=== PATIENT | male | born 1955 | race Caucasian/White ===

== ENCOUNTER 2024-05-20 08:05 | Outpatient (OUT) | payer MEDICARE, OTHER, SELFPAY ==
[2024-05-20 08:26] LABS: Basophils Absolute Auto 0.1 10^3/uL (0.0-0.1); Basophils Percent Auto 1.6 % (0.2-2.0); Eosinophils Absolute Auto 0.4 10^3/uL (0.0-0.7); Hematocrit 46.5 % (42.0-54.0); Hemoglobin 15.9 g/dL (14.0-18.0); Immature Granulocytes Abs Auto 0.03 10^3/uL (0.00-0.03); Immature Granulocytes Pct Auto 0.3 % (0.0-0.5); Lymphocytes Absolute Auto 3.1 10^3/uL (1.2-3.8); Lymphocytes Percent Auto 34.9 % (20.5-60.0); Mean Corpuscular HGB Conc 34.2 g/dL (29.9-35.2); Mean Corpuscular Hemoglobin 30.2 pg (25.9-34.0); Mean Corpuscular Volume 88.2 fL (80.0-94.0); Mean Platelet Volume 10.9 fL (9.5-13.5); Monocytes Absolute Auto 0.8 10^3/uL (0.3-0.8); Neutrophils Absolute Auto 4.3 10^3/uL (1.4-6.5); Neutrophils Percent Auto 49.2 % (43.0-75.0); Platelet Count 232 10^3/uL (150-450); Red Blood Count 5.27 10^6/uL (4.70-6.10); Red Cell Distribution Width 12.4 % (11.0-15.0); White Blood Count 8.7 10^3/uL (4.0-11.0)
[2024-05-20 08:27] LABS: Bilirubin Urine NEGATIVE (NEGATIVE); Blood Urine NEGATIVE (NEGATIVE); Clarity Urine CLEAR (CLEAR); Color Urine LT. YELLOW (YELLOW); Glucose Urine UA 250 mg/dL (NEGATIVE); Ketones Urine NEGATIVE (NEGATIVE); Leukocyte Esterase Urine NEGATIVE (NEGATIVE); Nitrite Urine NEGATIVE (NEGATIVE); Protein Urine NEGATIVE (NEG/TRACE); Urobilinogen Urine 0.2 EU/dL (0.2-1.0)
[2024-05-20 08:30] LABS: Urine Microscopic Indicated NO
[2024-05-20 09:42] LABS: Alanine Aminotransferase 76 U/L (16-63); Albumin Globulin Ratio 0.7; Albumin Level 3.5 g/dL (3.4-5.0); Alkaline Phosphatase 139 U/L (46-116); Anion Gap 13.7; Aspartate Amino Transferase 41 U/L (15-37); BUN Creatinine Ratio 11.9; Bilirubin Total 0.7 mg/dL (0.2-1.0); Calcium 9.2 mg/dL (8.5-10.1); Carbon Dioxide 27.3 mmol/L (21.0-32.0); Chloride 99 mmol/L (98-107); Estimated GFR (African America >60 (>=60 mL/min/1.73m^2); Estimated GFR (Non-African Ame >60 (>=60 mL/min/1.73m^2); Globulin 5.1 g/dL; Glucose 244 mg/dL (74-106); Sodium 136 mmol/L (136-145); Total Protein 8.6 g/dL (6.4-8.2)
[2024-05-20 10:16] LABS: Prostate Specific Antigen Scrn 0.37 ng/mL (<=4.00)
[2024-05-21 08:50] LABS: Estimated Average Glucose 214 mg/dL; Glycohemoglobin A1C 9.1 % (4.5-6.2)
== END 2024-05-20 08:06 | disposition home or self-care (01) ==
LOC: LAB 08:06
PROVIDERS: PCP Nurse Practitioner; Visit Provider Nurse Practitioner
DX: M54.50 Low back pain, unspecified (principal); E66.812 Obesity, class 2; E66.09 Other obesity due to excess calories; Z68.36 Body mass index [BMI] 36.0-36.9, adult; Z12.5 Encounter for screening for malignant neoplasm of prostate; R73.9 Hyperglycemia, unspecified
CPT/HCPCS: 36415; 80053; 81003; 83036; 85025; G0103

== ENCOUNTER 2025-03-16 08:41 | Outpatient (OUT) | payer MEDICARE, OTHER, SELFPAY ==
--- OUTSIDE RECORDS SUMMARY | 2025-03-16 08:46 | XMS_ITS | CCD ---
Author Organization [facility] Care Team Providers Care Physical Therapy Aides Teacher Name Role Phone JOI, BARBARA E Unavailable Unavailable MAHER, GREGORIO B Unavailable Unavailable JOI, BARBARA E Unavailable Unavailable JOI, BARBARA E Unavailable Unavailable MAHER, GREGORIO B Unavailable Unavailable JOI, BARBARA E Unavailable Unavailable MAHER, GREGORIO B Unavailable Unavailable KRISTIN DEGROOT Unavailable Unavailable JOI, BARBARA E Unavailable Unavailable JOI, BARBARA E Unavailable Unavailable MAHER, GREGORIO B Unavailable Unavailable Brenden Ramirez MD Primary Care Provider Rissa BOND ANALYST, Lyssa Unavailable Rissa BOND ANALYST, Lyssa Unavailable Rissa PROJECT MANAGEMENT MANAGER-AMBULATORY NURSELyssa Primary Care Provider STEFANI MARCUS Attending Unavailable LYSSA KWOK Referring Unavailable AICHBRIGETTE, LYSSA J Primary Care Unavailable AICHBRIGETTE, LYSSA J Referring Unavailable AICVINCE, LYSSA J Primary Care Unavailable VIKAS FLORES Admitting Unavailable VIKAS FLORES Attending Unavailable VIKAS FLORES Referring Unavailable AICHBRIGETTE LYSSA J Primary Care Unavailable AICHHOLZ, LYSSA Attending Unavailable AICHHOLZ, LYSSA Attending Unavailable AICHBRIGETTE, LYSSA Attending Unavailable Aichholz BOND ANALYST-CLyssa Primary Care Provider Rissa BOND ANALYST-C, Lyssa [place] Attending Provider Allergies Allergy ClassificationReported Allergen(s)Allergy TypeDate of OnsetReaction(s) Facility (10 sources)PenicillinsDrug Xtdezmnfhyz75-29-4624QwuqjakQBLV [facility] Work Phone: (5 sources)Penicillin; Translations: [PENICILLIN]Drug Celflil37-13-2405AebTcjcan [facility] System Medications Current Medications MedicationDrug Class(es)DatesSig (Normalized)Sig (Original)aspirin 81 mg oral tablet (6 sources)Platelet Aggregation Inhibitor, Nonsteroidal Anti-inflammatory Drug Start: 21-76-4166lmri 1 tablet by mouth once dailyAspirin 81 mg tablet Active 81 MG PO Daily December 19, 2024 12:00am Complies with drug therapytake 1 tablet by mouth once dailyaspirin 81 MG EC tablet Take 81 mg by mouth Daily Activeaspirin 81 mg chewable tablet Chew 1 tablet (81 mg total) and swallow in the morning. ActivemetFORMIN hydrochloride 500 mg oral tablet (12 sources)BiguanideStart: 67-61-9672cthv 1 tablet by mouth once dailyMetformin 500 mg tablet Active 500 MG PO Daily December 19, 2024 12:00am Complies with drug therapyStart: 05-22-2024 End: 92-93-5491lers 1 tablet by mouth at mealtimemetFORMIN (Glucophage) 500 MG tablet Indications: Type 2 diabetes mellitus without complication, without long- term current use of insulin Take 1 tablet (500 mg) by mouth in the morning. Take with meals. 90 tablet 09/10/2024 12/09/2024 Activesod sulf-pot chloride-mag sulf 1.479-0.188- 0.225 gram tablet (2 sources)Start: 26-00-2662nos sulf-pot chloride-mag sulf 1.479-0.188- 0.225 gram tablet Indications: Encounter for screening colonoscopy Please see instructional sheet given by physicians office. 24 tablet 06/04/2024 Active sulfamethoxazole 800 mg / trimethoprim 160 mg oral tablet (5 sources)Dihydrofolate Reductase Inhibitor Antibacterial, Sulfonamide AntimicrobialStart: 05-19-2024 End: 81-97-1316kznk 1 tablet by mouth oncesulfamethoxazole-trimethoprim (Bactrim DS) 800-160 MG per tablet Indications: Subacute maxillary sinusitis Take 1 tablet by mouth every 12 (twelve) hours for 7 days 14 tablet 05/19/2024 05/26/2024 Active Problems Active Problems Problem ClassificationProblemDateDocumented DateEpisodic/ChronicDiabetes mellitus without complication (11 sources)Type 2 diabetes mellitus without complication; Translations: [Type 2 diabetes mellitus without complications]Onset: hronic Miscellaneous mental health disorders (11 sources)Primary insomnia; Translations: [Primary insomnia]Onset: 05-19-2024 84-72-7214GtujkfgMyopzyaewrscdr (20 sources)Unilateral primary osteoarthritis, right knee; Translations: [Osteoarthritis of right knee joint]Onset: 156437-07-3116IgtzkmuRogks and unspecified benign neoplasm (1 source)Polyp of colon; Translations: [Polyp of colon]Onset: 06-19-2024 EpisodicOther and unspecified benign neoplasm (5 sources)Polyp of colon; Translations: [Polyp of colon]Onset: 06-19-2024 42-40-8586YbkgcpgnSgwsu circulatory disease (4 sources)Elevated blood pressure; Translations: [Elevated blood-pressure reading, without diagnosis of hypertension]Onset: 294873-06-5113Zdxlzhds Other connective tissue disease (1 source)Presence of right artificial knee joint; Translations: [Presence of right artificial knee joint]Onset: 23-75-1280WorlliqTqtmx liver diseases (2 sources)Alkaline phosphatase raised; Translations: [Abnormal levels of other serum enzymes]95-78-0494QotdgaqmIoman nutritional; endocrine; and metabolic disorders (15 sources)Obesity caused by energy imbalance; Translations: [Class 2 obesity due to excess calories without serious comorbidity with body mass index (BMI) of 36.0 to 36.9 in adult]Onset: 503566-14-5051CzdtsoxVudwinndxvtv (1 source)l tkr / l tkr()Onset: 86-45-9509Dfrnhzfxozcz (1 source)PRE SURG / PRE SURG()Onset: 17-55-8361Hasyocvglcfe (3 sources)Patient encounter status; Translations: [Colon Cancer Screening] Onset: 594227-59-3276Nrfxsrflxnbd (1 source)screeningOnset: 06-19-2024 Past or Other Problems Problem ClassificationProblemDateDocumented DateEpisodic/ChronicDiabetes mellitus without complication (7 sources)Hyperglycemia; Translations: [Hyperglycemia, unspecified]Onset: 05-21-2024 Resolved: 091071-67-5798PpfgnwnwNujf disorders (4 sources)Mood disordersOnset: Other non-traumatic joint disorders (11 sources)Hip pain; Translations: [Pain in right hip]Onset: 05-19-2024 50-70-8042CwwsefjtEzqge screening for suspected conditions (not mental disorders or infectious disease) (20 sources)Patient encounter status; Translations: [Encounter for screening for malignant neoplasm of colon]Onset: 147586-65-8561UypyjjkwLfkup upper respiratory infections (11 sources)Acute maxillary sinusitis; Translations: [Acute maxillary sinusitis, unspecified]Onset: 05-19-2024 Resolved: 844344-89-4305PhuaqhmzYgqssffuqjg; intervertebral disc disorders; other back problems (11 sources)Acute low back pain; Translations: [Acute right-sided low back pain without sciatica]Onset: 537936-52-4124HzcryqnyYmbfqgo and strains (20 sources)Strain of knee; Translations: [Strain of unspecified muscle(s) and tendon(s) at lower leg level, left leg, initial encounter]Onset: 05-19-2024 27-62-4136WorvodgmIqueikubtfdy (1 source)l tkr; Translations: [l tkr]Onset: 07-79-7965Qbzeenifwskl (1 source)PRE SURG; Translations: [PRE SURG]Onset: 69-65-9736Ongvi infection (10 sources)Disease caused by 2019-nCoV; Translations: [COVID-19]Onset: 04-24-2023 Resolved: 548226-65-9233Onzrctui Results Test NameValueInterpretationReference KpjigOgmzyixrVxX0g (Bld) [Mass fraction]on 48-40-1707Wqbsesuoappxcy and review of laboratory resultsAbnormalPemiscot Memorial Health Systems HealthcareLaboratory - Hematology and Cell countson 80-43-8757ZkI7d (Bld) [Mass fraction]6.5 %[facility] HealthcareSurgical Pathologyon 91-55-4477Ecbjnvpt PathologyNormalProMedica San Gabriel Valley Medical CenterComment on above:Result Comment: [facility] [address] [place] [address] Surgical Pathology Consultation Patient Name:SARKIS GUZMAN JR.:1955 (Age: 69)Gender:MTaken:06/19/2024Reported:06/26/2024Physician(s):Vikas Flores D.O. ([phone])Copy To: Rec. #:[id number]: # [id number] Final Pathologic Diagnosis 1. Ascending colon polyp, biopsy: Tubular adenoma. 2. Splenic flexure polyp, biopsy: Tubular adenoma. Report Electronically Signed Out ssi/06/26/2024Sulow Hahn M.D. Interpretation [place] [address], License number: [id number]. Clinical History Screening. 1. Cold snared a polyp. 2. Cold snared. Gross Description 1. Received in formalin labeled THOMAS, ascending colon polyp , are 3 armenta feathery polypoid fragments 0.1 cm - 0.3 cm. The specimen is filtered and submitted entirely in a single cassette. (1,ns,[id number], m1) SW 2. Received in formalin labeled THOMAS, splenic flexure polyp , is 1 armenta polypoid fragment 0.3 cm ingreatest dimension. The specimen is filtered and submitted entirely in a single cassette. (1,ns,I14-62552-1, m1) sxw/06/20/2024GR Specimen(s) Received 1: Ascending colon polyp 2: Splenic flexure polyp Fee Codes(s): 1; 03154 2; 42836ZTG CBC WITH AUTO DIFFon 85-12-4320ARVGGKPFR ABSOLUTE AUTO0.1NOMS HealthcareBasophils/100 WBC (Bld)1.6 %0.2 - 2.0 %[facility] HealthcareEosinophils/100 WBC (Bld)5 %0.9 - 7.0 %[facility] HealthcareErythrocyte distribution width (RBC) [Ratio]12.4 %11.0 - 15.0 %[facility] HealthcareHematocrit (Bld) [Volume fraction]46.5 %42.0 - 54.0 %[facility] HospitalHemoglobin (Bld) [Mass/Vol]15.9 g/dL14.0 - 18.0 g/dLHermann Area District HospitalIMMATURE GRANULOCYTES ABS AUTO0.03N[facility]S [facility] Orthopedic CenterImmature granulocytes/100 WBC (Bld)0.3 %0.0 - 0.5 %[facility] HospitalLYMPHOCYTES ABSOLUTE AUTO3.1N[facility] HealthcareLymphocytes/100 WBC (Bld)34.9 %20.5 - 60.0 %[facility] CenterH (RBC) [Entitic mass]30.2 pg25.9 - 34.0 pgSSM DePaul Health CenterHC (RBC) [Mass/Vol]34.2 g/dL29.9 - 35.2 g/dLSSM DePaul Health CenterV (RBC) [Entitic vol]88.2 fL 80.0 - 94.0 fLHermann Area District HospitalMONOCYTES ABSOLUTE AUTO0.8NOSSM Health Care Monocytes/100 WBC (Bld)9 %1.7 - 12.0 %[facility] HospitalNEUTROPHILS ABSOLUTE AUTO 4.3N[facility] HealthcareNeutrophils/100 WBC (Bld)49.2 %43.0 - 75.0 %[facility] Platelet mean volume (Bld) [Entitic vol]10.9 fL9.5 - 13.5 fLNOSSM Health CareTBH EO #0.4N[facility]opedic CenterTB [id number] [facility] CenterTB RBC5.27N[facility]opedic CenterTB WBC 8.7N[facility]S [facility]opedic CenterCLINISYNCNOMS HealthcareDischarge Summaryon 00-03-2257SNA IP Note OR TranscriptionNormalBarberton Citizens HospitalHgb/Hcton 03-21-4157Mirylsgemf (HCT)39.1 %Low40.7-50.3[facility]'S HospitalComment on above:Performed By: #### HH ####[address] [place] [address] Hemoglobin mass conc (Bld)13.2 g/fTAaghvo03.0-17.0Bar[facility] Citizens HospitalComment on above:Performed By: #### HH ####[address] [place] [address] Plan of Careon 28-86-9318IFB IP Note OR TranscriptionNormTriHealth [facility] Hospital HospitalProgress Noteon 63-64-2708QGA IP Note OR TranscriptionNormalMercy Health St. [facility] HospitalPLUNKET[facility] IP Note OR TranscriptionNormalMercy Health St. [facility] HospitalHI IP Note OR TranscriptionNormalMerMadison Health HospitalHI IP Note OR TranscriptionNormalMercy Health St. [facility] HospitalHI IP Note OR Appian Bpm Developer NormalMerMadison Health HospitalHI IP Note OR TranscriptionNormalMercy Health St. [facility] HospitalPLUNKETT [facility] IP Note OR TranscriptionNormalMercy Health St. [facility] HospitalXR KNEE RIGHT (1- 2 VIEWS)on 73-07-1235BozmhbjIEYQTD: Right knee, 2 views.INDICATION: Right total knee.FINDINGS: AP and lateral views of the right knee show a total knee prosthesis to be present. The prosthesis appears to be well seated within the bony structures, in good position and alignment. There is no fracture or dislocation. There is prominent spurring from the patella. There is a drain within the soft tissues.Final report electronically signed by Dalton Echevarria on 10/16/2017 9:24 AMIMPRESSION: TOTAL KNEE PROSTHESIS AT THE RIGHT KNEE,IN GOOD POSITION AND ALIGNMENT. NO FRACTURE OR DISLOCATION.Interpreted by:LINDSAY Anayaignedby:Dalton Echevarria MD10/16/17inal resultNoOhioHealth Grady Memorial HospitalConsulton 85-51-8773TGP IP Note OR TranscriptionNoOhioHealth Grady Memorial HospitalOPERATIVE REPORTon 27-55-7336OQWUUYGRW REPORT[address] [id number] OPERATIVE REPORTPATIENT N MADAN: SARKIS GUZMAN : 1955MED REC NO: [id number] ROOM: [id number] NO: [id number] ADMIT DATE: 10/15/2017PROVIDER: Barbara DeviDATE OF PROCEDURE: 10/15/2017PREOPERATIVE DIAGNOSIS: Degenerative arthritis, right knee.POSTOPERATIVE DIAGNOSIS: Degenerative arthritis, right knee.PROCEDURE PERFORMED: Right total knee replacement using a Silas Personaknee, size 10 standard cemented femoral component, size G stemmed cementedtibial component with a 10 mm vitamin E poly and a 38-mm vitamin E patellardome.SURGEON: Dr. Barbara Devi.ANESTHESIA: General.DESCRIPTION OF PROCEDURE: The patient was brought into the operating room,placed in a supine position on the operating table. General anesthetic wasadministered. The patient had received a gram of vancomycin. The rightlower extremity was prepped with ChloraPrep, draped in a sterile fashion. A 12-cm medial parapatellar quadriceps-sparing incision was made. This wastaken down through the skin and subcutaneous tissue. Arthrotomy was madealongthe medial border of the patellar tendon through the medialretinaculum superior pole of the patella. Fat pad was then excised. Central drill hole was placed on the femoral canal, and distal femoral cutwas set at 5 degrees valgus. Femoral tower marked for 3 degrees ofexternal rotation. This was followed by a size 10 four-in-one cuttingblock. Anterior, posterior cuts and chamfer cuts were then made. Surfaceof tibia was then osteotomized with the tibial jig. Remnants of menisciremoved. Posterior capsule was injected with 20 mL of the Exparel mixture.Undersurface of the patella was then osteotomized elliptically with a 38-mmpatellar dome. Gaston holes were placed. The knee was then cleansed withSimpulse with gentamicin and the irrigation solution. Trial reduction wasthen carried out, elected to go with size 10 standard cemented femoralcomponent, size G stemmed tibial plateau, 10 mm poly and a 38-mm patellardome. Knee was well balanced both in flexion and extension. Trialcomponents removed. The tourniquet was inflated to 250 mmHg. Knee wasagain cleansed with Simpulse with gentamicin and the irrigation solution,dried. Methyl methacrylate was prepared. The tibial component was thencemented in place. This was followed by cementing the femoral component inplace, and finally patellar dome was cemented in place. All excess cementwas removed. The 10 mm vitamin E poly was inserted. The deep fascialstructures were injected with 50 mL of the Exparel mixture. The tourniquetwas released. Good hemostasis noted. The deep fascial layer was thenclosed with #1 Vicryl fhjxpv-uz-ikixb sutures over two Hemovac drains, 2-0Vicryl in the subcutaneous and 3-0 undyed Monocryl subcuticular stitch. Wound was dressed with Steri-Strips, Adaptic, fluffs, ABD, Kerlix roll, Acewrap from toe to groin. The patient was transferred to Recovery in astable condition and will be transferred upstairs.BARBARA NIDESTINYD: 10/15/2017 16:53:26 [id number]#: [id number] Doc#: [id number]:[facility] HospitalOp Noteon [id number] IP Note OR TranscriptionNormalMercy Health St[facility] HospitalPlan of [facility] 32-34-7478XUP IP Note OR TranscriptionNoSelect [facility] [place] HospitalProgress Noteon 90-30-3055ZQP IP Note OR TranscriptionNormDayton Children's Hospital IP Note OR TranscriptionNormTriHealth [facility] HospitalHI IP Note OR TranscriptionNormOhioHealth O'Bleness HospitalPlan of [facility] [id number] IP Note OR TranscriptionGrand Lake Joint [facility] Memorial Hospital HospitalType + Screenon 35-58-5847Wrgl + ScreenSample Expiration 10/18/2017 Arm Band Number 02229 ABO/Rh(D) A POSITIVE Antibody Screen NEGATIVECleveland Clinic Akron GeneralComment on above:Performed By: #### TYS ####[address] [place] [address] MRSA, DNA, Nasalon 30-94-3442HEMQ, DNA, NasalNEGATIVE: MRSA DNA not detected by nucleic acid amplification.[facility] Comment on above:Result Comment: Results should be used as an adjunct to nosocomial control efforts to identify patients needing enhanced precautions.The test is not intended to identify patients with staphylococcal infections. Results should not be used to guide or monitor treatment for MRSA infections.Performed at [address] [id number] [phone] By: #### MRSANO ####[address] [phone] [place] [address] Basic Metabolic Profon 09-19-2017(cont.)NormalBarberton Citizens HospitalComment on above:Result Comment: Average GFR for 60-69 years old: 85 mL/min/1.73sq mChronic Kidney Disease: <60 mL/min/1.73sq mKidney failure: <15 mL/min/1.73sq meGFR calculated using average adult body mass. Additional eGFR calculator available at:http://www.[employer]/multiple_crcl_2012.htmPerformed By: #### CDP, BMP ####[address] [place] [id number] Anion gap10 mmol/LNormal9-17[facility] HospitalComment on above:Performed By: #### CDP, BMP ####[address] [place] [address] BUN/CRE Umown93Qmdavn9-49Ckhsy [facility] Comment on above:Performed By: #### CDP, BMP ####[address] [place] [address] Mikucgs6.2 mg/dLNormal8.6-10.4[facility] HospitalComment on above:Performed By: #### CDP, BMP ####[address] [place] [address] Nvkqbhgm338 mmol/LNormal 98-107Bar[facility] HospitalComment on above:Performed By: #### CDP, BMP ####[address] [place] [address] JW353 mmol/MOaamin38-59HqwqpBarberton Citizens HospitalComment on above:Performed By: #### CDP, BMP ####[address] [place] [address] Creatinine0.92 mg/dLNormal0.70-1.20[facility] HospitalComment on above: Performed By: #### CDP, BMP ####[address] [place] [address] GFR, Amer>60Normal>60[facility] HospitalComment on above:Performed By: #### CDP, BMP ####[address] [place] [address] GFR,non Amer>60Normal>60[facility] HospitalComment on above:Performed By: #### CDP, BMP ####[address] [place] [address] Glucose mass ymmc192 mg/pIXkvf65-65 [facility] HospitalComment on above:Performed By: #### CDP, BMP ####[address] [place] [address] Potassium molar conc4.6 mmol/LNormal3.7-5.3Mmercy health west hospitaly [facility] HospitalComment on above:Performed By: #### CDP, BMP ####[address] [place] [address] Kguucx150 mmol/FDnzvht264-561Uvwmr [facility] HospitalComment on above:Performed By: #### CDP, BMP ####[address] [place] [address] Staging:NormalMer[address] Health [address] [facility] HospitalComment on above:Result Comment: Stage 1: Some kidney damage normal GFRStage 2: Mild kidney damage GFR 60-89Stage 3:Moderate kidney damage GFR 30-59Stage 4: Severe kidney damage GFR 15-29Stage 5: Severe kidney damage GFR <15ESRD - chronic treatment by dialysis or transplantPerformed at [address] [place] [address] Performed By: #### CDP, BMP ####[address] [place] [address] Urea vbdeggbs70 mg/dL Normal8-23[facility] HospitalComment on above:Performed By: #### CDP, BMP ####[address] , [place] [address] CBC with Diffon [id number]. Basophil0.13 k/uLNormal0.00-0.20[facility] Comment on above:Performed By: #### CDP, BMP ####[address] , [place] [address] Abs.Imm.Granulocyte0.04 k/uLNormal 0.00-0.30[facility] HospitalComment on above:Result Comment: Performed at [address] [place], [place] [address] Performed By: #### CDP, BMP ####[address] , [place] [address] Abs.Neutrophil (Seg)3.97 k/uLNormal1.50-8.10[facility] HospitalComment on above:Performed By: #### CDP, BMP ####[address] , [place] [address] Basophils/100 WBC Auto (Bld)2 % Normal0-2MCleveland Clinic Fairview HospitalComment on above:Performed By: #### CDP, BMP ####[address] , [place] [address] Eosinophils0.41 10*3/uLNormal0.00-0.44[facility] HospitalComment on above: Performed By: #### CDP, BMP ####[address] , [place] [address] Eosinophils/100 leukocytes5 %High1-4[facility] Comment on above:Performed By: #### CDP, BMP ####[address] , [place] [address] Erythrocyte distribution width Auto Ratio (RBC)12.7 %Fqqwoy57.8-14.4[facility] HospitalComment on above:Performed By: #### CDP, BMP ####[address] [place] [address] Erythrocytes (RBC)5.28 10*6/uLNormal4.21-5.77[facility] HospitalComment on above:Performed By: #### CDP, BMP ####[address] [place] [address] Hematocrit (HCT)47.9 %Normal 40.7-50.3MercOhioHealth Shelby Hospital HospitalComment on above:Performed By: #### CDP, BMP ####[address] [place] [address] Hemoglobin mass conc (Bld)15.9 g/hZRplvxb26.0-17.0[facility] HospitalComment on above:Performed By: #### CDP, BMP ####[address] [place] [address] Immature granulocytes #/vol (Bld)1 %Pxzv7DdxegMercy Health St. [facility] HospitalComment on above:Performed By: #### CDP, BMP ####[address] [place] [address] Xtvgzpzrizd4.29 10*3/uL Normal1.10-3.70[facility] HospitalComment on above:Performed By: #### CDP, BMP ####[address] [place] [address] Lymphocytes/100 byosvccbab12 %Rdcmwl48-18AogusBarberton Citizens HospitalComment on above: Performed By: #### CDP, BMP ####[address] [place] [address] YJM08.1 saNtxoof85.2-33.5[facility] HospitalComment on above:Performed By: #### CDP, BMP ####[address] [place] [address] MCHC mass conc (RBC)33.2 g/cKTtlcaw10.4-34.8 [facility] HospitalComment on above:Performed By: #### CDP, BMP ####[address] [place] [address] TFG02.7 fLNormal 82.6-102.9[facility] HospitalComment on above:Performed By: #### CDP, BMP ####[address] [place] [address] Monocytes0.77 10*3/uLNormal0.10-1.20[facility] HospitalComment on above: Performed By: #### YOBANI, BMP ####[address] [place] [address] Monocytes/100 uobnuifspv47 %Normal3-12[facility] Comment on above:Performed By: #### YOBANI, BMP ####[address] [place] [address] Neutrophil (Seg)52 %Mwtmvw72-04ArodtBarberton Citizens HospitalComment on above:Performed By: #### YOBANI, BMP ####[address] [place] [address] NRBC Automated0.0 per 100 WBCNormal0.0[facility] HospitalComment on above:Performed By: #### YOBANI, BMP ####[address] [place] [address] Platelet mean volume (PMV)10.6 fLNormal8.1-13.5[facility] HospitalComment on above:Performed By: #### CDP, BMP ####[address] [place] [address] Buscjetlo026 10*3/kTYjthkb911-565OdjcmBarberton Citizens HospitalComment on above:Performed By: #### YOBANI, BMP ####[address] [place] [address] WBC (Leukocytes)7.6 10*3/uLNormal 3.5-11.3MercOhioHealth Shelby Hospital HospitalComment on above:Performed By: #### CDP, BMP ####[address] [place] [address] Auto Diff PerformedNOT REPORTEDNormalMercy Health St. [facility] HospitalComment on above:Performed By: #### CDP, BMP ####[address] [place] [address] Erythrocyte morphologyNOT REPORTEDCleveland Clinic [facility]ron General Comment on above:Performed By: #### CDP, BMP ####[address] [place] [address] PlateletsNOT REPORTEDNormTriHealth [facility] Hospital HospitalComment on above:Performed By: #### CDP, BMP ####[address] [place] [address] WBC MorphologyNOT REPORTEDNormal [facility] HospitalComment on above:Performed By: #### CDP, BMP ####[address] [place] [address] MRSA, DNA, Nasal on 92-71-1566Hamdppjg Description.NASAL SWABNormOhioHealth O'Bleness HospitalComment on above:Result Comment: Performed at [address] [place] [address] Performed By: #### MRSANO ####[address] [phone] [place] [address] Progress Noteon [id number] IP Note OR TranscriptionNormalMerGreenwich HospitalHIM IP Note OR Appian Bpm Developer NormalMerGreenwich HospitalHI IP Note OR TranscriptionNormalBarberton Citizens Hospital Vital Signs Date TimeVital SignValuePerforming MwqurvsleWcjclvtx74-55-4068 08:50-0400 Diastolic blood mm[Hg]Lyssa Aichholz BOND ANALYST-C Work Phone: [phone]-[facility]2025 08:50-0400 Systolic blood mm[Hg]Lyssa Aichholz BOND ANALYST-C Work Phone: [phone]09-15-2025 08:29-0400 Body isrlom935.34 cmLisa Aichholz BOND ANALYST-C Work Phone: [phone]09-15-2025 08:29-0400 Body mass index (BMI) [Ratio]34.4 kg/m2Lisa Aichholz BOND ANALYST-C Work Phone: [phone]09-15-2025 08:29-0400 Body ymhphsuwncu91.8 [degF]Lyssa Aichholz BOND ANALYST-C Work Phone: [phone]09-15-2025 08:29-0400 Body .09 kgLisa Aichholz BOND ANALYST-C Work Phone: [phone] [place], [place] [address]2009-15-2025 08:29-0400 Heart rate87 /minLisa Aichholz BOND ANALYST-C Work Phone: [phone]09-15-2025 08:29-0400 Respiratory rate18 /minLisa Aichholz BOND ANALYST-C Work Phone: [phone] [place], [place] [address]09-15-2025 08:29-0400 SaO2% (BldA) [Mass fraction]98 %Lyssa Aichholz BOND ANALYST-C Work Phone: [facility]06-11-2025 09:35-0400 Diastolic blood mm[Hg]Lyssa Aichholz BOND ANALYST Work Phone: [facility] HospitalKdirqefwof98-54-0348 09:35-0400Systolic blood lbovekrd137 mm[Hg]Lyssa Aichholz BOND ANALYST Work Phone: [facility] HospitalLcogyatfgu96-08-6876 09:02-0400Body mass index (BMI) [Ratio]35.15 kg/m2Lyssa Kwok BOND ANALYST Work Phone: [facility] HospitalTknkcalgcp19-29-9064 09:02-0400Body temperature 98.1 [degF]Lyssa Kwok BOND ANALYST Work Phone: [facility] HospitalRnvkswakdz79-22-3399 09:02-0400Body vehlwl781.31 kgLyssa Kwok BOND ANALYST Work Phone: [facility] HospitalXdxmebquvr50-22-1639 09:02-0400Heart rate86 /min Lyssa Kwok BOND ANALYST Work Phone: [facility] HospitalFtfrzfyvwz14-80-8909 09:02-0400Respiratory rate18 /minLisa Kwok BOND ANALYST Work Phone: [facility] HospitalSvyqooxxlh68-53-8554 09:02-4110RyV7% (BldA) [Mass fraction]98 %Lyssa Kwok BOND ANALYST Work Phone: [facility] HospitalUmvarqbomd53-19-9944 10:23-0500Body pijheh192.[address]03-06-2025 10:23-0500Body mass index (BMI) [Ratio] 36.26 kg/m[address]03-06-2025 10:23-0500Body cymcgh584.[address]02-26-2025 10:20-0500Body eozquv645.3 cmjeffery Ryanjess THORNTONN-AMBULATORY NURSE Work Phone: [facility]02-26-2025 10:20-0500Body mass index (BMI) [Ratio]37.1 kg/w1Qanwmog Marcus PROJECT MANAGEMENT MANAGER-AMBULATORY NURSE Work Phone: [facility]02-26-2025 10:20-0500Body rjwiqj474.66 kgStefani Marcus PROJECT MANAGEMENT MANAGER-AMBULATORY NURSE Work Phone: [facility]02-10-2025 09:52-0500Body rwalsp770.3 Trice Kwok BOND ANALYST Work Phone: [facility] HospitalUjaqdnshxv70-61-1367 09:52-0500Body mass index (BMI) [Ratio]36.93 kg/m2Lyssa Kwok BOND ANALYST Work Phone: noSSM Health CareOswuuncxzf92-10-5316 09:52-0500Body temperature 98.29 [degF]Lyssa Kwok BOND ANALYST Work Phone: [facility] HospitalYuwwckksph37-36-8800 09:52-0500Body qviync480.11 kgLyssa Kwok BOND ANALYST Work Phone: [facility] HospitalYltyzbjddr77-62-0808 09:52-0500Diastolic blood zcuajhkf46 mm[Hg]Lyssa Kowk BOND ANALYST Work Phone: noSSM Health CarePkajhcoeqm79-65-1487 09:52-0500Heart rate75 /min Lyssa Kwok BOND ANALYST Work Phone: [facility] HospitalDmjydxeaui08-99-7519 09:52-0500Respiratory rate18 /minLisa Kwok BOND ANALYST Work Phone: noSSM Health CareLahrzwbdlc82-50-0135 09:52-6144SoW3% (BldA) [Mass fraction]96 %Lyssa Kwok BOND ANALYST Work Phone: noSSM Health CarePnxjvqbhoh72-43-8917 09:52-0500Systolic blood woxhokir135 mm[Hg]Lyssa Kwok BOND ANALYST Work Phone: [facility] Encounters Encounter DateEncounter TypeCare ProviderFacilityStart: 12-22-2024 End: 81-10-3130axowklmnbeQkaq J Aichholz BOND ANALYST-C Work Phone: [facility] Work Phone: Start: 12-22-2024 End: 31-49-5440Tqanqch encounter procedureLisa Adria Kwok BOND ANALYST-C-[facility] Work Phone: Start: 28-31-8387Kjsuxvf encounter procedureLyssa Kwok BOND ANALYST-C Work Phone: [facility] Hospitaltart: 09-17-2024 End: 12-09-6101Krxjwa flowsphillipLyssa Kwok BOND ANALYST Work Phone: [facility] FMStart: 09-17-2024 End: 29-17-8326Sgznyz flowsheetLyssa Kwok BOND ANALYST Work Phone: [facility] FMStart: 09-17-2024 End: 27-26-9020Mchput outpatient visit 15 minutesLyssa Kwok BOND ANALYST Work Phone: [facility] FMComment on above:Type 2 diabetes mellitus without complication, without long-term current use of insulin (Primary Dx); Class 2 obesity due to excess calories without serious comorbidity with body mass index (BMI) of 36.0 to 36.9 in adult; Elevated blood pressure readingStart: 09-17-2024 End: 44-42-2003atktpjxzhoIAMB AICHHOLZNot AvailableStart: 09-10-2024 End: 93-19-6075WrhmlqZbzo Aichholz BOND ANALYST Work Phone: [facility] FMComment on above:Type 2 diabetes mellitus without complication, without long-term current use of insulinStart: 06-30-2024 End: 26-17-9445Zbqoivgiw encounterLadelicia Mancini CMAProMedica Physicians General SurgeryStart: 06-19-2024 End: 10-54-1883Ybzmjfmiev and management of inpatientMICCleveland Clinic Union Hospitaltart: 19-95-2274Giszyzg encounter procedureLyssa Kwok BOND ANALYST Work Phone: [facility] HealthcareStart: 06-17-2024 End: 03-15-6612nnddiyiloiCQKM AICHHOLZNot AvailableStart: 06-12-2024 End: 98-74-1276dntanssumuDac Pat Phone Call Provider [address] [place] [address] - Pre AdmitStart: 06-12-2024 End: 34-71-5027bxkwlleazeHYOD J AICHHOLZTuscarawas Hospitaltart: 06-04-2024 End: 58-51-0588Enxiuso encounter procedureJaroddivinewalker Marcus PROJECT MANAGEMENT MANAGER-AMBULATORY NURSE Work Phone: [facility] Physicians General SurgeryComment on above: Encounter for screening colonoscopy (Primary Dx)Start: 06-04-2024 End: 73-97-6854nqgihhovthVTYVHVG A CARROLLOhioHealth [facility] Start: 05-22-2024 End: 20-58-6447IfnozhMrmn Aichholz BOND ANALYST Work Phone: [facility] FMComment on above:Type 2 diabetes mellitus without complication, without long-term current use of insulin ([facility]) (P rimary Dx)Start: 05-21-2024 End: 49-66-0080Mwtwjw OnlyLisa Sinhholz BOND ANALYST Work Phone: [facility] FMComment on above:Hyperglycemia (Primary Dx) Start: 05-20-2024 End: 62-15-6397Ixvazoxog Result EncounterLisa Sinhholz BOND ANALYST Work Phone: [facility] External Department UnsolicitedStart: 05-20-2024 End: 92-64-9067Zoyghlfxu Result EncounterLisa Aichholz BOND ANALYST Work Phone: [facility] External Department UnsolicitedStart: 05-19-2024 End: 26-02-4864Fzidrx flowsheetLisa Sinhholz BOND ANALYST Work Phone: [facility] FMStart: 05-19-2024 End: 14-45-2332Uiivcq flowsheetLisa Sinhholz BOND ANALYST Work Phone: [facility] FMStart: 05-19-2024 End: 86-82-4322Rvkilq outpatient visit 25 minutesLisa Sinhholz BOND ANALYST Work Phone: [facility] FMComment on above:Lumbosacral ligament sprain, initial encounter (Primary Dx); Strain of left knee, initial encounter; Right hip pain; Colon cancer screening; Primary osteoarthritis, unspecified site; Prostate cancer screening; Acute right-sided low back pain without sciatica; Class 2 obesity due to excess calories without serious comorbidity with body mass index (BMI) of 36.0 to 36.9 in adult; Subacute maxillary sinusitisStart: 05-19-2024 End: 25-60-8066uheqnjlsloQVFT AICHHOLZNot AvailableStart: 10-15-2017 End: 41-10-7336Qdnhgufmrv and management of inpatientCHRISTOPHER D MIKAYLAMercy Health St[facility] HospitalStart: 10-11-2017 End: 18-75-3073PhoogoaznbOPSWUZ Logan [facility] HOSPITALDESTINYMercy Health St[facility] HospitalStart: 09-19-2017 End: 99-49-3875EjfijsvsdaBYEICQRegency Hospital [facility] Procedures DateProcedureProcedure DetailPerforming ClinicianStart: 91-51-8919Zimqhcfthw glycosylated g3sMhpdLyssa Kwok BOND ANALYST Work Phone: Start: 09-68-0445FmyngmfsgcaWrywfq Venia CMAStart: 82-22-8568FXJ CBC WITH AUTO DIFFLyssa Kwok BOND ANALYST Work Phone: Start: 72-27-1586JXJSA OXIMETRY, CONTINUOUSPHILIP HAVENSStart: 13-82-4117Lcwboxeruy examination knee 1/2 viewsPHILIP HAVENSStart: 56-00-0296BWPMCNMWZ PATIENTPHILIP HAVENSStart: 39-75-2318EFDUNDLE OXYGEN THERAPY PROTOCOLPHILIP HAVENSStart: 86-02-5863VREHW OXIMETRY, CONTINUOUSPHILIP JOI Start: 75-71-4866YEPZPECDNI AND HEMATOCRIT, BLOODPHILIP HAVENSStart: 10-16-2017 PULSE OXIMETRY, CONTINUOUSPHILIP HAVENSStart: 13-07-8919SNJHRFBH PATIENTPHILIP HAVENSStart: 04-59-8866PTGTWAMR REMOVALPHILIP HAVENSStart: 23-83-4648CDDCMS AND OUTPUTPHILIP HAVENSStart: 16-58-0104DHEBS OXIMETRY, CONTINUOUSPHILIP JOI Start: 50-14-3432IDKQG OXIMETRY, CONTINUOUSPHILIP HAVENSStart: 10-15-2017 INCENTIVE SPIROMETRY NURSINGPHILIP HAVENSStart: 08-91-0439GN CONSULT TO PRIMARY CARE PROVIDERPHILIP HAVENSStart: 98-35-4083DO EVAL AND TREATPHILIP HAVENSStart: 14-01-5860OBVBY INTERMITTENT PNEUMATIC COMPRESSION DEVICEPHILIP HAVENSStart: 06-98-0392XL EVAL AND TREATPHILIP HAVENSStart: 57-95-9078KXSJPBC DIET TOLERATED (NURSING COMMUNICATION)BARBARA HAVENSStart: 31-91-7443AEG TO BEDSIDE BARBARA HAVENSStart: 44-61-6045ZAKSTM AT BEDSIDEPHILIP HAVENSStart: 10-15-2017 DIET GENERALPHILIP HAVENSStart: 60-69-7556CSWMCLB EXTREMITYPHILIP HAVENSStart: 01-55-8217YCNM CODEPHILIP HAVENSStart: 90-91-6419CBGHFLSY OXYGEN THERAPY PROTOCOLPHILIP HAVENSStart: 24-20-6022ZWUICH AND OUTPUTPHILIP HAVENSStart: 09-93-8538OMJHEQGGYDQGQ NURSING CARE ORDER (SPECIFY)BARBARA HAVENSStart: 21-61-1955FDKXX/VASCULAR CHECKSPHILIP HAVENSStart: 37-10-3428KRMHJBC COMMUNICATIONPHILIP HAVENSStart: 79-85-6760GSHIMTA MAY SHOWERPHILIP HAVENSStart: 70-32-2572IOJTM OXIMETRY, CONTINUOUSPHILIP HAVENSStart: 90-52-5866DRLKJXS CESSATION EDUCATIONPHILIP HAVENSStart: 91-84-1916YUYES SIGNSPHILIP HAVENSStart: 46-84-0730LBPTUP BEARING TOLERATEDPHILIP HAVENSStart: 01-97-2672KHTDY CARE BARBARA HAVENSStart: 63-79-4427AKMDAJNP PATIENTPHILIP HAVENSStart: 10-15-2017 PATIENT STATUS (DIRECT)BARBARA HAVENSStart: 48-47-6434XVCR AND SCREENPHILIP HAVENSStart: 19-22-9372MNM 12-LEADPHILIP HAVENSStart: 41-53-4235Pefff metabolic panel calcium totalPHILIP HAVENSStart: 45-46-4583Uaqov count complete auto&auto difrntl wbcPHILIP HAVENSStart: 61-31-4430RBGU DNA PROBE, NASALPHILIP JOI Start: 28-84-4331IraiovksebsYxzo Aichholz NP Work Phone: Plan of Treatment DateCare ActivityDetailAuthorStart: 81-75-0677Pbhutouti for malignant neoplasm of colonLouis Stokes [facility] SystemStart: 01-10-2290Fdeun BMI ScreeningAdult BMI ScreeningLouis Stokes [facility] SystemStart: 98-41-4186Kwdyahw ScreeningTobacco ScreeningLouis Stokes [facility] SystemStart: 03-11-2026Medicare Annual Wellness (AWV) Medicare Annual Wellness (AWV)[facility] HealthcareStart: 79-04-1880Dgcpb BMI ScreeningAdult BMI ScreeningLouis Stokes [facility] SystemStart: 86-69-1033Zjqhvsd ScreeningTobacco ScreeningLouis Stokes [facility] SystemStart: 12-22-2024 End: 09-56-0231Rjdazui encounter qjqqbevxg30/15/2025 8:40 AM EDT [facility] [address] [place] [address] Lyssa Kwok, BOND ANALYST [address] [place] [address] [facility]Rob[facility] FMStart: 79-63-8226Musducwebm A1c measurement Diabetes: Hemoglobin H3PPWTJ HealthcareStart: 09-17-2024 End: 66-79-7965Porvztntqxdka metabolic 2000 panel - Serum or PlasmaComprehensive metabolic panel Lab Routine Type 2 diabetes mellitus without complication, without long-term current use of insulin Expected: 09/17/2024 (Approximate), Expires: 09/17/2025[facility] Work Phone: Comment on above:Expected: 09/17/2024 (Approximate), Expires: 09/17/2025Start: 09-17-2024 End: 98-46-3317Mfbbj 1996 panel - Serum or PlasmaLipid panel Lab Routine Type 2 diabetes mellitus without complication, without long-term current use of insulin Expected: 09/17/2024 (Approximate), Expires: 09/17/2025[facility] HealthcareComment on above:Expected: 09/17/2024 (Approximate), Expires: 09/17/2025Start: 09-17-2024 End: 44-90-6446Gtyvfhrhliwj/Creatinine panel in random UrineMicroalbumin / creatinine, urine ratio Lab Routine Type 2 diabetes mellitus without complication, without long-term current use of insulin Expected: 09/17/2024 (Approximate), Expires: 09/17/2025[facility] HealthcareComment on above:Expected: 09/17/2024 (Approximate), Expires: 09/17/2025Start: 09-17-2024 End: 88-80-4812Wfmpjqv encounter procedureNOCORNERSTONE SPECIALTY [facility] FMComment on above:Class 2 obesity due to excess calories without serious comorbidity with body mass index (BMI) of 36.0 to 36.9 in adult (Primary Dx); Type 2 diabetes mellitus without complication, without long-term current use of insulinStart: 06-19-2024 End: 92-81-7844Mnzoiiour to same day surgery gkanbe9106/19/2024 8:30 AM EDT - 06/19/2024 9:00 AM EDT Surgery [facility] [address] [place] [address] [place] [address] [place] [address] [id number] COLONOSCOPY DIAGNOSTIC / SCREENING [60830 (CPT )][facility] CenterComment on above:COLONOSCOPY DIAGNOSTIC / SCREENING [71384 (CPT )]Start: 06-19-2024 End: 24-93-1491Guszqdjiglw flx dx w/collj spec when pfrmdCOLONOSCOPY DIAGNOSTIC / SCREENING Screen for colon cancer 06/19/2024 8:30 AM EDTFREMONT SURGERYStart: 13-57-2520Unsepxzwov hospital visit by dxcxopwkv82/13/2025 8:30 AM EDT Hospital Encounter [facility] [address] [place] [address] Vikas Flores, DO [address], [place] [phone] [facility] SurgeryStart: 06-17-2024 End: 50-17-3533Pjbmmye encounter tjowstnsl27/11/2025 10:00 AM EDT Office Visit [facility] [address] [place] [address] Lyssa Kwok, BRENDEN [address] [place] [address] [facility] FMStart: 06-12-2024 End: 78-48-5338coeawgnhla66/06/2025 3:10 PM EST Support Visit [facility] Admit [address] [place] [phone] [facility] AdmitStart: 05-21-2024 End: 34-12-6443Dvngrbcpjm A1c/Hemoglobin.total in BloodHemoglobin A1c Lab Routine Hyperglycemia Expected: 05/21/2024 (Approximate), Expires: 05/21/2025 [facility] Work Phone: Comment on above:Expected: 05/21/2024 (Approximate), Expires: 05/21/2025Start: 05-19-2024 End: 09-05-1189WTX W Auto Differential panel - BloodCBC and differential Lab Routine Acute right-sided low back pain without sciatica Expected: 05/19/2024 (Approximate), Expires: 05/19/2025[facility] Work Phone: Comment on above:Expected: 05/19/2024 (Approximate), Expires: 05/19/2025Start: 05-19-2024 End: 21-18-6982Zgztqmmvgbidb metabolic 2000 panel - Serum or PlasmaComprehensive metabolic panel Lab Routine Acute right-sided low back pain without sciatica Class 2 obesity due to excess calories without serious comorbidity with body mass index (BMI) of 36.0 to 36.9 in adult Expected: 05/19/2024 (Approximate), Expires: 05/19/2025[facility] HealthcareComment on above:Expected: 05/19/2024 (Approximate), Expires: 05/19/2025Start: 05-19-2024 End: 90-37-8784Jwubddqw specific Ag [Mass/volume] in Serum or PlasmaPSA Lab Routine Prostate cancer screening Expected: 05/19/2024 (Approximate), Expires: 05/19/2025[facility] HealthcareComment on above:Expected: 05/19/2024 (Approximate), Expires: 05/19/2025Start: 05-19-2024 End: 98-89-3486Rycxsxvmyh complete panel - UrineUrinalysis with reflex microscopic (clean catch) Lab Routine Acute right-sided low back pain without sciatica Expected: 05/19/2024 (Approximate), Expires: 05/19/2025[facility] Healthcare Comment on above:Expected: 05/19/2024 (Approximate), Expires: 05/19/2025Start: 05-19-2024 End: 70-29-9399OI Hip - right 3 ViewsXR hip right 2 or 3 views Imaging Routine Right hip pain Expected: 05/19/2024, Expires: 05/19/2025[facility] HealthcareComment on above:Expected: 05/19/2024, Expires: 05/19/2025Start: 05-19-2024 End: 78-30-0112Ejfxkfj encounter bmtgsmazd03/10/2025 10:00 AM EST Office Visit [facility] [address] [place] [address] Lyssa Kwok, BRENDEN [address] [place] [address] [facility] FMComment on above:ArrivedStart: 02-21-2021 Fall Risk ScreeningFall Risk ScreeningProBlanchard Valley Health [facility] SystemStart: 04-09-2018 Screening for malignant neoplasm of colonNOOK HealthcareStart: 02-21-1975 DTaP,Tdap and Td Vaccines (1 - Tdap)DTaP,Tdap and Td Vaccines (1 - Tdap) [facility] SystemStart: 86-27-6540Iguyb screening for proteinDiabetes: Urine Protein ScreeningNOOK HealthcareStart: 96-44-4825Rwboc BMI Follow Up Plan Adult BMI Follow Up PlanProMedica Health SystemStart: 24-10-2622Dkqxgfiaol ScreeningDepression ScreeningUNC Health Waynetart: 38-97-2020Ruphxzhe screeningDiabetes: Retinopathy ScreeningPRIMARY CHILDREN'S [facility]ITAL HealthcareStart: 1955 Hemoglobin A1c measurementDiabetes: Hemoglobin C0ZGCXJ HealthcareStart: 1956Medicare Annual Wellness (AWV)Medicare Annual Wellness (AWV)[facility] HealthcareStart: 41-84-3036Hfuywfwvz for malignant neoplasm of colonNOOK Healthcare End: 19-00-8626IwxdhtltxfhFbhybirjfio GI Routine Encounter for screening colonoscopy 1 Occurrences starting 06/04/2024 until 06/03/2025[facility] Work Phone: Comment on above:1 Occurrences starting 06/04/2024 until 06/03/2025omprehensive metabolic 2000 panel - Serum or PlasmaGood [facility]aritan [facility] Immunizations Immunization DateImmunizationNotesCare KhtkitucXxayrztv02-17-4339qvslujojx, high dose seasonal, preservative-freeLisa Aichholz BOND ANALYST Work Phone: [facility] HospitalUfnyflricy77-28-9692Bvqlnffhe, Seasonal, Quadrivalent, AdjuvantedLisa Aichholz BOND ANALYST Work Phone: [facility] HospitalZchcksymtc83-27-9605ssopwh vaccine recombinant Lyssa Aichholz BOND ANALYST Work Phone: [facility] HospitalNprauhnhqn73-21-0118lxwbus vaccine recombinant Lyssa Aichholz BOND ANALYST Work Phone: [facility] HospitalEpxfczrwmd38-24-1959Vhajbrqptovr Conjugate PCV 20 Lyssa Aichholz BOND ANALYST Work Phone: [facility] HospitalVwerdsjvin79-84-0218Lycpfoiwu, Seasonal, Quadrivalent, AdjuvantedLisa Aichholz BOND ANALYST Work Phone: [facility] HospitalQjiypqzmqt09-63-7371rtegshvit, injectable, quadrivalent, preservative freeLisa Aichholz BOND ANALYST Work Phone: [facility] HospitalNdgthqnanp50-00-3066yrsitsigc, injectable, quadrivalent, preservative freeLisa Aichholz BOND ANALYST Work Phone: [facility] HospitalByoplbpmre09-23-9052vnwyanus influenza, intradermal, preservative freeLisa Aichholz BOND ANALYST Work Phone: [facility] Healthcare Payers DatePayer CategoryPayerPolicy [id number] Health InsuranceMUTUAL [facility] [id number] 17-03-5511Axwhxel Care Other (unspecified)MUTUAL [facility] [id number] 2021Medicare [id number] [id number] [id number] Health [id number] [id number] 2..840.1.653066.3.57[id number] 2..840.1.726712.3.57[id number] 2..840.1.631310.3.57[id number] 2..840.1.811096.3.579.[id number] 2..840.1.116675.3.579.[id number] 2..840.1.364620.3.579.2.9UnknownAnthem /[id number] Social History DateTypeDetailFacilityStart: 82-37-0469Umrjjjx smoking status NHISTobacco smoking consumption unknownNOMS HealthcareStart: 88-96-0693Pvhpmugqt beverage intakeNot AskedNOMS HealthcareStart: 02-57-7239Ego assigned at birthNot on file [facility] HealthcareStart: 05-19-2024 End: 96-01-0782Laxkzk identityNot on fileNOMS HealthcareStart: 05-19-2024 End: 31-96-1135Muyohok smoking status NHISNever smoked tobaccoNOMS Healthcare Start: 05-19-2024 End: 22-44-7779Jkycsgy use and exposureSmokeless tobacco non-userNOMS Healthcare Start: 05-19-2024 End: 22-37-7016Gcsvndqqu beverage intakeCurrent drinker of alcohol (finding)[facility] HealthcareStart: 05-19-2024 End: 35-39-1768Iyztjws of Social functionNOMS HealthcareStart: 90-64-8595Wkehthm Commentvery infreqNOMS HealthcareChildcarePortneuf Medical Center SystemStart: 27-41-9415Vozphny Commentvery SaskiaStyleTreadwhitney Desi Hits SystemStart: 92-35-6994Dyx Male (finding)Chersearcy hospitalakshat Desi Hits SystemStart: 85-76-0239Ckt Assigned At [facility] Clinical Notes 05-19-2024 to 09-17-2024 Note Date & WkrxXvfxQuventyl90-25-1928 History of Present illness Narrative* Lyssa Kwok NP - 09/17/2024 9:35 AM EDTAssociated Problem(s): Elevated blood pressure reading Recommend starting therapy Pt refuses, does not like taking meds We have talked about guideline recommendations as well as renal protection, continues to decline * Lyssa Kwok NP - 09/17/2024 9:00 AM EDT Images from the original note were not included. Sarkis Guzman Jr. is a 69 y.o. male presents with chief complaint of Diabetes HPI: Diabetes He presents for his follow-up diabetic visit. He has type 2 diabetes mellitus. His disease course has been improving. There are no hypoglycemic associated symptoms. Pertinent negatives for hypoglycemia include no dizziness, nervousness/anxiousness, seizures or tremors. Pertinent negatives for diabetes include no polydipsia, no polyphagia and no polyuria. There are no hypoglycemic complications. Symptoms are improving. Pertinent negatives for diabetic complications include no heart disease, nephropathy or peripheral neuropathy. Risk factors for coronary artery disease include diabetes mellitus, hypertension and male sex. Current diabetic treatment includes oral agent (monotherapy). He is compliant with treatment all of the time. He participates in exercise weekly. An ROSEMARY inhibitor/angiotensin II receptor mickey is not being taken. He does not see a film cutter.Eye exam is not current. SUBJECTIVE: MEDICATIONS: Current Outpatient Medications Medication Instructions aspirin 81 mg, Oral, Daily metFORMIN (GLUCOPHAGE) 500 mg, Oral, Daily with breakfast ALLERGIES: Allergies Allergen Reactions Penicillins Unknown ALLERGY A CHILD REVIEW OF SYMPTOMS: Review of Systems Constitutional: Negative for activity change, appetite change and unexpected weight change. HENT: Negative for ear pain, nosebleeds, sneezing, trouble swallowing and voice change. Eyes: Negative for pain, discharge and visual disturbance. Respiratory: Negative for apnea, chest tightness and wheezing. Cardiovascular: Negative for leg swelling. Gastrointestinal: Negative for abdominal distention, blood in stool, constipation and diarrhea. Genitourinary: Negative for decreased urine volume, difficulty urinating, dysuria and hematuria. Skin: Negative for color change. Neurological: Negative for dizziness, tremors and seizures. Psychiatric/Behavioral: Negative for agitation, decreased concentration, hallucinations, self-injury and suicidal ideas. The patient is not nervous/anxious. Hematological: Negative for adenopathy. Does not bruise/bleed easily. Endocrine: Negative for cold intolerance, heat intolerance, polydipsia, polyphagia and polyuria. Allergic/Immunologic: Negative for environmental allergies and food allergies. PAST MEDICAL HISTORY History reviewed. No pertinent past medical history. Past Surgical History: Procedure Laterality Date HERNIA REPAIR umbilical TOTAL KNEE ARTHROPLASTY Right family history is not on file. OBJECTIVE: Visit Vitals BP 144/76 (BP Location: Left arm, Patient Position: Sitting, BP Cuff Size: Large adult) Pulse 86 Temp 98.1 F (Temporal) Resp 18 Wt 252 lb SpO2 98% BMI 35.15 kg/m Smoking Status Never BSA 2.39 m Physical Exam Vitals and nursing note reviewed. Constitutional: Appearance: Normal appearance. HENT: Head: Normocephalic. Right Ear: External ear normal. Left Ear: External ear normal. Mouth/Throat: Mouth: Mucous membranes are moist. Pharynx: Oropharynx is clear. Eyes: Extraocular Movements: Extraocular movements intact. Conjunctiva/sclera: Conjunctivae normal. Neck: Vascular: No carotid bruit. Cardiovascular: Rate and Rhythm: Normal rate and regular rhythm. Pulses: Normal pulses. Heart sounds: Normal heart sounds. Pulmonary: Effort: Pulmonary effort is normal. Breath sounds: Normal breath sounds. No wheezing or rhonchi. Abdominal: General: Bowel sounds are normal. Palpations: Abdomen is soft. Tenderness: There is no abdominal tenderness. There is no guarding. Musculoskeletal: Cervical back: Neck supple. Right lower leg: No edema. Left lower leg: No edema. Skin: General: Skin is warm and dry. Capillary Refill: Capillary refill takes 2 to 3 seconds. Neurological: General: No focal deficit present. Mental Status: He is alert. Psychiatric: Mood and Affect: Mood normal. Behavior: Behavior normal. Thought Content: Thought content normal. Judgment: Judgment normal. ASSESSMENT AND PLAN: Follow up in about 3 months (around 12/18/2024) for Recheck. Problem List Items Addressed This Visit Class 2 obesity due to excess calories without serious comorbidity with body mass index (BMI) of 36.0 to 36.9 in adult - Primary Discussed with patient their BMI (actual, verses recommended). We have also discussed lifestyle modifications: attempts to perform physical activity as chronic conditions allow, also to monitor dietary intake: increasing protein/fruits/veggies and lowering carb intake (unless contraindicated). Limit sodas, juices, and sugary drinks. He has been making changes Has lost 12 pounds since 06/03 Type 2 diabetes mellitus without complication, without long-term current use of insulin Check blood sugars daily, notify if <70 or >200. Take medications (pills or insulin) as directed. Monitor for s/s of hypoglycemia (sweaty, dizziness, nausea, vomiting, or shakiness). Watch for increase in thirst, urination, or appetite. Inspect feet frequently monitoring for open wounds , andalso recommend yearly eye exam. Pt should continue to remain as physically active as chronic conditions allow, as well as trying tofollow a diet low in carbohydrates, and simple sugars. Current meds: metformin, asa A1c : 6.5% 09/17/24 (9.1% on 05/20/24) Relevant Medications metFORMIN (Glucophage) 500 MG tablet Other Relevant Orders POCT glycosylated hemoglobin (Hb A1C) docked device (Completed) Comprehensive metabolic panel Microalbumin / creatinine, urine ratio Lipid panel Elevated blood pressure reading Recommend starting therapy Pt refuses, does not like taking meds We have talked about guideline recommendations as well as renal protection, continues to decline * Lyssa Kwok NP - 09/17/2024 6:15 AM EDTAssociated Problem(s): Type 2 diabetes mellitus without complication, without long-term current useof insulin Check blood sugars daily, notify if <70 or >200. Take medications (pills or insulin) as directed. Monitor for s/s of hypoglycemia (sweaty, dizziness, nausea, vomiting, or shakiness). Watch for increase in thirst, urination, or appetite. Inspect feet frequently monitoring for open wounds , andalso recommend yearly eye exam. Pt should continue to remain as physically active as chronic conditions allow, as well as trying tofollow a diet low in carbohydrates, and simple sugars. Current meds: metformin, asa A1c : 6.5% 09/17/24 (9.1% on 05/20/24) * Lyssa Kwok NP - 09/17/2024 6:14 AM EDTAssociated Problem(s): Class 2 obesity due to excess calories without serious comorbidity with bodymass index (BMI) of 36.0 to 36.9 in adult Discussed with patient their BMI (actual, verses recommended). We have also discussed lifestyle modifications: attempts to perform physical activity as chronic conditions allow, also to monitor dietary intake: increasing protein/fruits/veggies and lowering carb intake (unless contraindicated). Limit sodas, juices, and sugary drinks. He has been making changes Has lost 12 pounds since 06/03 documented in this [facility] [id number] Instructions* Patient Instructions* Lyssa Kwok NP - 09/17/2024 9:00 AM EDT No medication changes, keep up the good work documented in this [facility]03-24-2025 Miscellaneous Notes* Telephone Encounter - Mary Mancini CMA - 06/30/2024 9:07 AM EDT ----- Message from Dr. Viaks Flores, sent at 06/27/2024 9:35 AM EDT ----- Please let pt. Know that he had 2 precancerous tubular adenomas and needs surveillance scope in 5 years unless problems. Thanks, Dr. Rasheed * Telephone Encounter - Mary Mancini CMA - 06/30/2024 9:07 AM EDT Spoke with patient regarding pathology results. Patient verbally understood with no further questions. Recall put in chart. [facility] Telephone encounter Note* Telephone Encounter - Mary Mancini CMA - 06/30/2024 9:07 AM EDT ----- Message from Dr. Vikas Flores, sent at 06/27/2024 9:35 AM EDT ----- Please let pt. Know that he had 2 precancerous tubular adenomas and needs surveillance scope in 5 years unless problems. Thanks, Dr. Rasheed [facility]03-24-20[facility] Telephone encounter Note* Telephone Encounter - Mayr Mancini CMA - 06/30/2024 9:07 AM EDT Spoke with patient regarding pathology results. Patient verbally understood with no further questions. Recall put in chart. [facility]03-06-20[facility] Miscellaneous Notes* Perioperative Nursing Note - Komal Coughlin RN - 06/12/2024 3:10 PM EST Preoperative Education Checklist- General Surgery date: 06/19/24 Surgery time: 829 Arrival time: 629 1. Bring a photo ID and your insurance card with you the day of surgery. You will check in at the main lobby of the [facility]- registration desk is straight ahead as soon as you walk in. Tell them you are here for surgery. 2. If you have a Living Will/Durable Power of Charging Operator for Health Care that is not on file here, please bring a copy the day of surgery. 3. Please shower/bathe the night before surgery with the provided soap or wipes. Do not shower the morning of surgery- you will do use wipes when you arrive here at the hospital before getting into your surgical gown. Do not shave the area of your procedure for 2 days prior to your surgery. 4. NO powder, lotion, perfume/cologne, aftershave, make-up, deodorant, or hair products after you have bathed. 5. NO nail montserratian/acrylic on at least one finger. If you are having a hand, wrist or foot surgery then all nail montserratian and artificial/acrylic nails must be removed from that hand or foot. 6. Avoid ALL Aspirin and non-steroidal anti-inflammatory drugs and certain vitamins (Ibuprofen, Advil, Aleve, Excedrin, Meloxicam, Celebrex, fish/krill oil, etc.) for 7 days prior to surgery as instructed by your surgeon and/or your prescribing doctor. Tylenol IS ALLOWED. If you are on Ticlid, Xarelto, Eliquis, Pradaxa, Plavix or Coumadin, please check with your prescribing doctor for instructions for when to stop them. 7. If you use an inhaler, continue to use it routinely. 8. Nothing to eat or drink (not even water, gum, mints, or hard candy!) AFTER midnight prior to your surgery. 9. Take only medications that you are instructed to on the morning of surgery with a TINY SIP OF WATER. 10. Choose a responsible adult that will be able to drive you home when you are discharged from your hospital stay for your surgery and can stay with you in your home for 24 hours after your procedure. You must NOT drive any vehicle or operate any machinery for 24 hours after surgery. 11. When you dress for your appointment, please wear loose fitting clothing that is appropriate to accommodate your surgical area procedure. BRING WITH YOU ANY DEVICES YOU MAY NEED: ROMMEL hose, ice machine, sling/swath, brace or special shoe, oversized zip-up or button up shirt, CPAP machine if staying overnight. 12. Do NOT wear jewelry, watches, or any piercings or metal for surgery- leave these valuables and money at home. 13. Do NOT wear contact lenses for surgery- glasses are okay if needed. 14. The anesthesiologist will talk with you the day of surgery and will ask you to sign a Consent Form. 15. Refrain from smoking or any type of tobacco use for at least 8 hours and marijuana for 24 hoursprior to arrival for your surgery. 16. If a GREEN BLOOD band is given to you, please bring it with you for the day of surgery. 17. Notify your surgeon if you develop any illness before your surgery. 18. If you are staying overnight, please DO NOT BRING your home medications with you. 19. If you have any questions prior to surgery, please call the Preadmission Testing office at [phone], Mon.-Fri. 7 a.m.-3 p.m. Leave a voicemail if needed. Pre-Surgery Instructions: Medication Instructions metFORMIN (GLUCOPHAGE) 500 mg tablet Stop taking 0 days prior to procedure sod sulf-pot chloride-mag sulf 1.479-0.188- 0.225 gram tablet Stop taking 0 days prior to procedure documented in this encounter[facility]03-[facility] Nurse Note* Perioperative Nursing Note - Komal Coughlin RN - 06/12/2024 3:10 PM EST Preoperative Education Checklist- General Surgery date: 06/19/24 Surgery time: 829 Arrival time: 629 1. Bring a photo ID and your insurance card with you the day of surgery. You will check in at the main lobby of the [facility]- registration desk is straight ahead as soon as you walk in. Tell them you are here for surgery. 2. If you have a Living Will/Durable Power of Charging Operator for Health Care that is not on file here, please bring a copy the day of surgery. 3. Please shower/bathe the night before surgery with the provided soap or wipes. Do not shower the morning of surgery- you will do use wipes when you arrive here at the hospital before getting into your surgical gown. Do not shave the area of your procedure for 2 days prior to your surgery. 4. NO powder, lotion, perfume/cologne, aftershave, make-up, deodorant, or hair products after you have bathed. 5. NO nail montserratian/acrylic on at least one finger. If you are having a hand, wrist or foot surgery then all nail montserratian and artificial/acrylic nails must be removed from that hand or foot. 6. Avoid ALL Aspirin and non-steroidal anti-inflammatory drugs and certain vitamins (Ibuprofen, Advil, Aleve, Excedrin, Meloxicam, Celebrex, fish/krill oil, etc.) for 7 days prior to surgery as instructed by your surgeon and/or your prescribing doctor. Tylenol IS ALLOWED. If you are on Ticlid, Xarelto, Eliquis, Pradaxa, Plavix or Coumadin, please check with your prescribing doctor for instructions for when to stop them. 7. If you use an inhaler, continue to use it routinely. 8. Nothing to eat or drink (not even water, gum, mints, or hard candy!) AFTER midnight prior to your surgery. 9. Take only medications that you are instructed to on the morning of surgery with a TINY SIP OF WATER. 10. Choose a responsible adult that will be able to drive you home when you are discharged from your hospital stay for your surgery and can stay with you in your home for 24 hours after your procedure. You must NOT drive any vehicle or operate any machinery for 24 hours after surgery. 11. When you dress for your appointment, please wear loose fitting clothing that is appropriate to accommodate your surgical area procedure. BRING WITH YOU ANY DEVICES YOU MAY NEED: ROMMEL hose, ice machine, sling/swath, brace or special shoe, oversized zip-up or button up shirt, CPAP machine if staying overnight. 12. Do NOT wear jewelry, watches, or any piercings or metal for surgery- leave these valuables and money at home. 13. Do NOT wear contact lenses for surgery- glasses are okay if needed. 14. The anesthesiologist will talk with you the day of surgery and will ask you to sign a Consent Form. 15. Refrain from smoking or any type of tobacco use for at least 8 hours and marijuana for 24 hoursprior to arrival for your surgery. 16. If a GREEN BLOOD band is given to you, please bring it with you for the day of surgery. 17. Notify your surgeon if you develop any illness before your surgery. 18. If you are staying overnight, please DO NOT BRING your home medications with you. 19. If you have any questions prior to surgery, please call the Preadmission Testing office at [phone], Mon.-Fri. 7 a.m.-3 p.m. Leave a voicemail if needed. Pre-Surgery Instructions: Medication Instructions metFORMIN (GLUCOPHAGE) 500 mg tablet Stop taking 0 days prior to procedure sod sulf-pot chloride-mag sulf 1.479-0.188- 0.225 gram tablet Stop taking 0 days prior to procedure [facility]02-[facility] History of Present illness Narrative* Stefani Marcus, PROJECT MANAGEMENT MANAGER-AMBULATORY NURSE - 06/04/2024 10:30 AM EST Chief Complaint: Colon cancer screening History of Present Illness Sarkis Guzman Jr. is a 69 y.o. male who presents to the office for colon cancer screening. His lat colonoscopy was in 2009. He denies diarrhea, constipation, abdominal pain, melena, hematochezia, unexplained weight loss. There is no family history of colon cancer. Review of Systems Constitutional: Negative for fever and unexpected weight change. HENT: Negative for trouble swallowing. Respiratory: Negative for shortness of breath. Cardiovascular: Negative for chest pain. Gastrointestinal: Negative for nausea, vomiting, abdominal pain, diarrhea, constipation and blood in stool. Genitourinary: Negative for dysuria and difficulty urinating. Musculoskeletal: Negative for gait problem. Skin: Negative for rash and wound. Neurological: Negative for dizziness, weakness and light-headedness. Hematological: Does not bruise/bleed easily. Psychiatric/Behavioral: Negative for confusion. Past Medical History: Diagnosis Date Diabetes ([facility]) Past Surgical History: Procedure Laterality Date KNEE ARTHROPLASTY Right UMBILICAL HERNIA REPAIR Allergies Allergen Reactions Penicillin As as child Current Outpatient Medications: metFORMIN (GLUCOPHAGE) 500 mg tablet, Take 1 tablet (500 mg total) by mouth daily with breakfast., Disp: , Rfl: sod sulf-pot chloride-mag sulf 1.479-0.188- 0.225 gram tablet, Please see instructional sheet givenby physicians office., Disp: 24 tablet, Rfl: 0 Social History Socioeconomic History Marital status: Spouse name: Not on file Number of children: Not on file Years of education: Not on file Highest education level: Not on file Occupational History Not on file Tobacco Use Smoking status: Never Smokeless tobacco: Never Vaping Use Vaping status: Never Used Substance and Sexual Activity Alcohol use: Yes Comment: very little Drug use: Never Sexual activity: Defer Other Topics Concern Not on file Social History Narrative Not on file Social Drivers of Health Financial Resource Strain: Not on file Food Insecurity: Not on file Transportation Needs: Not on file Physical Activity: Not on file Stress: Not on file Social Connections: Not on file Interpersonal Safety: Not on file Housing Instability: Not on file Family History Problem Relation Age of Onset Lung cancer Father smoke Objective Physical Exam Constitutional: General: He is not in acute distress. Appearance: Normal appearance. He is not ill-appearing. HENT: Head: Normocephalic and atraumatic. Mouth/Throat: Mouth: Mucous membranes are moist. Eyes: Pupils: Pupils are equal, round, and reactive to light. Cardiovascular: Rate and Rhythm: Normal rate. Pulmonary: Effort: Pulmonary effort is normal. No respiratory distress. Abdominal: General: There is no distension. Musculoskeletal: General: Normal range of motion. Skin: General: Skin is warm and dry. Neurological: Mental Status: He is alert and oriented to person, place, and time. Mental status is at baseline. Vital Signs: Height 180.3 cm (5' 11 ), weight 120.7 kg (266 lb). Respiratory Source: No data recorded Admission Weight: Weight: 120.7 kg (266 lb) Labs No results found for: WBC , HGB , HCT , MCV , PLT No results found for: GLU , CALCIUM , NA , K , CO2 , CL , BUN , CREATININE No results found for: AMYLASE No results found for: LIPASE No results found for: ALT , AST , GGT , ALKPHOS , LABBILI No results found for: INR , PROTIME Assessment Sarkis Guzman is a 69 y.o.male who presents to the office for screening colonoscopy. Plan Colonoscopy with possible biopsy and/or polypectomy. Risks, benefits, and alternatives discussed with patient. Educated on bowel evacuation preparation. Patient verbalizes understanding and wishes toproceed. Evaluation included: Preparing to see the patient (e.g., review of tests) Obtaining and/or reviewing separately obtained history Performing a medically appropriate examination and/or evaluation Counseling and educating the patient/family/caregiver Referring and communicating with other health personal care assistant Encounter for screening colonoscopy [Z12.11] YANDY DSOUZA [facility] Physicians General Surgery [place] This note was created with the assistance of a speech recognition program. While intending to generate a timely document that accurately reflects the content of the visit, no guarantee can be provided that every grammatical or spelling mistake has been or will be identified or corrected. Thank you for your understanding. YANDY Dsouza 06/04/24 1042 documented in this encounter[facility]02-[facility] History of Present illness Narrative* Lyssa Kwok NP - 05/19/2024 10:53 AM ESTAssociated Problem(s): Low back pain Ice, NSAID/tylenol Seems to be getting better Unsure if hip is true hip pain, vs radicular Fu in 4 weeks * Lyssa Kwok NP - 05/19/2024 10:53 AM ESTAssociated Problem(s): Colon cancer screening Colon cancer screening options were discussed with patient, as well as why colon cancer screening is indicated. Options are Colonoscopy: direct visualization, every 10 years (unless indicated more frequently), risks and benefits were discussed Cologuard: every 3 years, risks and benefits were discussed , contraindications were discussed (family hx of colon cancer, colon polyps) Patient has elected to: colonoscopy, will refer to [facility]by, who did his last one as well * Lyssa Kwok NP - 05/19/2024 10:52 AM ESTAssociated Problem(s): Subacute maxillary sinusitis Feels he is in need for atb Also takes flonase, add allergy pill as well Fu if not better * Lyssa Kwok NP - 05/19/2024 10:52 AM ESTAssociated Problem(s): Class 2 obesity due to excess calories without serious comorbidity with bodymass index (BMI) of 36.0 to 36.9 in adult Discussed with patient their BMI (actual, verses recommended). We have also discussed lifestyle modifications: attempts to perform physical activity as chronic conditions allow, also to monitor dietary intake: increasing protein/fruits/veggies and lowering carb intake (unless contraindicated). Limit sodas, juices, and sugary drinks. * Lyssa Kwok NP - 05/19/2024 10:52 AM ESTAssociated Problem(s): Strain of left knee No laxity noted, no xray needed at this time * Lyssa Kwok NP - 05/19/2024 10:51 AM ESTAssociated Problem(s): Right hip pain Possible radicular from LS sprain Will give order for XR hip at this time Fu in 4 weeks * Lyssa Kwok NP - 05/19/2024 10:51 AM ESTAssociated Problem(s): Lumbosacral ligament sprain, initial encounter Sxs seem to be getting better just with OTC NSAID and tyleonol arthritis Would recommend ice to affected area No red flags Fu in 4 weeks, sooner if needed * JOLEEN VOGT - 05/19/2024 10:00 AM EST Pt fell a week ago Sunday05/10/24, stepped out of his truck at the gas station and slipped/fell onice Pt states that the left leg was behind him when he fell. Last 05/13/24 pt fell down 3 steps- he was reaching to pick something up and fell and hurt his back and left knee again. Pt has been taking IBU and tylenol arthritis, and a heat pad for his back Pt also would like to ask about sinus issues he has been having for a month now, he has not had anyheadaches or eye pain just nasal bridge pressure, raspy voice and cough, coughing up white phlegm, drainage, stuffy nose, and ears plugged. He does take Flonase. Pt also wants to bring up he has been having flare ups in his arthritis lately in right hip and right thumb-his right thumb is making it difficult for him to grasp onto things. The pain is Keeping him up all night. * Lyssa Kwok NP - 05/19/2024 10:00 AM EST Images from the original note were not included. Sarkis Guzman Jr. is a 69 y.o. male presents with chief complaint of Fall (Ice & stairs) HPI: Note seen in over a year: S/p fall about a week or so ago: Pt fell a week ago Sunday05/10/24, stepped out of his truck at the gas station and slipped/fell on ice Pt states that the left leg was behind him when he fell. Last 05/13/24 pt fell down 3 steps- he was reaching to pick something up and fell and hurt his back and left knee again. Pt has been taking IBU and tylenol arthritis, and a heat pad for his back Pt also would like to ask about sinus issues he has been having for a month now, he has not had anyheadaches or eye pain just nasal bridge pressure, raspy voice and cough, coughing up white phlegm, drainage, stuffy nose, and ears plugged. He does take Flonase. Pt also wants to bring up he has been having flare ups in his arthritis lately in right hip and right thumb-his right thumb is making it difficult for him to grasp onto things. The pain is Keeping him up all night. Back Pain This is a new problem. The current episode started in the past 7 days. The problem occurs daily. The problem has been gradually improving since onset. The pain is present in the lumbar spine. The quality of the pain is described as aching. The pain does not radiate. The pain is mild. The symptoms are aggravated by bending and twisting. Pertinent negatives include no abdominal pain, bladder incontinence, bowel incontinence, dysuria, headaches, leg pain, numbness, paresis, paresthesias, perianal numbness, tingling or weakness. Risk factors include obesity. He has tried NSAIDs and heat for the symptoms. The treatment provided moderate relief. Knee Pain The incident occurred 5 to 7 days ago. The injury mechanism was a twisting injury and a fall. The pain is present in the left knee. The quality of the pain is described as aching. The pain has been Improving since onset. Pertinent negatives include no inability to bear weight, loss of motion, loss of sensation, muscle weakness, numbness or tingling. He reports no foreign bodies present. The symptoms are aggravated by movement. He has tried acetaminophen, NSAIDs and heat for the symptoms. The treatment provided moderate relief. Sinusitis This is a chronic problem. The current episode started more than 1 month ago. The problem is unchanged. There has been no fever. Associated symptoms include congestion, coughing and sinus pressure. Pertinent negatives include no ear pain, headaches, neck pain, shortness of breath, sneezing, sore throat or swollen glands. Treatments tried: allergy nasal spray. The treatment provided mild relief. SUBJECTIVE: MEDICATIONS: Current Outpatient Medications Medication Instructions sulfamethoxazole-trimethoprim (Bactrim DS) 800-160 MG per tablet 1 tablet, Oral, Every 12 hours ALLERGIES: Allergies Allergen Reactions Penicillins Unknown ALLERGY A CHILD REVIEW OF SYMPTOMS: Review of Systems Constitutional: Negative for activity change, appetite change and unexpected weight change. HENT: Positive for congestion and sinus pressure. Negative for ear pain, nosebleeds, sneezing, sorethroat, trouble swallowing and voice change. Eyes: Negative for pain, discharge and visual disturbance. Respiratory: Positive for cough. Negative for apnea, chest tightness, shortness of breath and wheezing. Cardiovascular: Negative for leg swelling. Gastrointestinal: Negative for abdominal distention, abdominal pain, blood in stool, bowel incontinence, constipation and diarrhea. Genitourinary: Negative for bladder incontinence, decreased urine volume, difficulty urinating, dysuria and hematuria. Musculoskeletal: Positive for arthralgias and back pain. Negative for neck pain. Skin: Negative for color change. Neurological: Negative for dizziness, tingling, tremors, seizures, weakness, numbness, headaches and paresthesias. Psychiatric/Behavioral: Negative for agitation, decreased concentration, hallucinations, self-injury and suicidal ideas. The patient is not nervous/anxious. Hematological: Negative for adenopathy. Does not bruise/bleed easily. Endocrine: Negative for cold intolerance, heat intolerance, polydipsia and polyuria. Allergic/Immunologic: Negative for environmental allergies and food allergies. PAST MEDICAL HISTORY History reviewed. No pertinent past medical history. Past Surgical History: Procedure Laterality Date HERNIA REPAIR umbilical TOTAL KNEE ARTHROPLASTY Right family history is not on file. OBJECTIVE: Visit Vitals BP 138/80 (BP Location: Left arm, Patient Position: Sitting, BP Cuff Size: Large adult) Pulse 75 Temp 98.3 F (Temporal) Resp 18 Ht 5' 11 Wt 264 lb 12.8 oz SpO2 96% BMI 36.93 kg/m Smoking Status Never BSA 2.45 m Physical Exam Vitals and nursing note reviewed. Constitutional: General: He is not in acute distress. Appearance: Normal appearance. He is obese. He is not ill-appearing, toxic- appearing or diaphoretic. HENT: Head: Normocephalic. Right Ear: Tympanic membrane, ear canal and external ear normal. Left Ear: Tympanic membrane, ear canal and external ear normal. Nose: Congestion present. No rhinorrhea. Comments: Sinus tenderness Mouth/Throat: Mouth: Mucous membranes are moist. Pharynx: Oropharynx is clear. No oropharyngeal exudate or posterior oropharyngeal erythema. Eyes: Extraocular Movements: Extraocular movements intact. Conjunctiva/sclera: Conjunctivae normal. Neck: Vascular: No carotid bruit. Cardiovascular: Rate and Rhythm: Normal rate and regular rhythm. Pulses: Normal pulses. Heart sounds: Normal heart sounds. Pulmonary: Effort: Pulmonary effort is normal. Breath sounds: Normal breath sounds. No wheezing or rales. Abdominal: General: Bowel sounds are normal. Palpations: Abdomen is soft. Tenderness: There is no abdominal tenderness. There is no guarding. Musculoskeletal: Cervical back: Neck supple. Right lower leg: No edema. Left lower leg: No edema. Comments: Lumbar near full ROM, -SLR X2, DTR's 2+ bilat patellar/achilles MMT 5/5 bilat LE, heel/toe walk no difficulty, mild tenderness to right para lumbar No midline CTL spine tenderness Left knee: no acute swelling, no effusion, near full ROM, however with end range flexion +anterior knee pain, no laxity noted, neg valgas /varus stress Pain to outer aspect of the hip with internal/external rotation to the right hip, neg on the left -JOE test bilat Lymphadenopathy: Cervical: No cervical adenopathy. Skin: General: Skin is warm and dry. Capillary Refill: Capillary refill takes 2 to 3 seconds. Neurological: General: No focal deficit present. Mental Status: He is alert. Psychiatric: Mood and Affect: Mood normal. Behavior: Behavior normal. Thought Content: Thought content normal. Judgment: Judgment normal. ASSESSMENT AND PLAN: Follow up in about 4 weeks (around 06/16/2024). Problem List Items Addressed This Visit Strain of left knee - Primary No laxity noted, no xray needed at this time Lumbosacral ligament sprain, initial encounter Sxs seem to be getting better just with OTC NSAID and tyleonol arthritis Would recommend ice to affected area No red flags Fu in 4 weeks, sooner if needed Colon cancer screening Colon cancer screening options were discussed with patient, as well as why colon cancer screening is indicated. Options are Colonoscopy: direct visualization, every 10 years (unless indicated more frequently), risks and benefits were discussed Cologuard: every 3 years, risks and benefits were discussed , contraindications were discussed (family hx of colon cancer, colon polyps) Patient has elected to: colonoscopy, will refer to [facility], who did his last one as well Relevant Orders Ambulatory referral to General Surgery Right hip pain Possible radicular from LS sprain Will give order for XR hip at this time Fu in 4 weeks Relevant Orders XR hip right 2 or 3 views Primary osteoarthritis Prostate cancer screening Relevant Orders PSA Low back pain Ice, NSAID/tylenol Seems to be getting better Unsure if hip is true hip pain, vs radicular Fu in 4 weeks Relevant Orders CBC and differential Comprehensive metabolic panel Urinalysis with reflex microscopic (clean catch) Class 2 obesity due to excess calories without serious comorbidity with body mass index (BMI) of 36.0 to 36.9 in adult Discussed with patient their BMI (actual, verses recommended). We have also discussed lifestyle modifications: attempts to perform physical activity as chronic conditions allow, also to monitor dietary intake: increasing protein/fruits/veggies and lowering carb intake (unless contraindicated). Limit sodas, juices, and sugary drinks. Relevant Orders Comprehensive metabolic panel Subacute maxillary sinusitis Feels he is in need for atb Also takes flonase, add allergy pill as well Fu if not better Relevant Medications sulfamethoxazole-trimethoprim (Bactrim DS) 800-160 MG per tablet documented in this [facility]02-10-2025 Instructions* Patient Instructions* Lyssa Kwok NP - 05/19/2024 10:00 AM EST Get labs fasting Hip xray order Refer for colonscopy Follow up in about 4 weeks for recheck of your back and knee And we will do your medicare wellness appt as well documented in this [facility]* Diagnosis Lumbosacral ligament sprain, initial encounter- Primary Strain of left knee, initial encounter Right hip pain Pain in joint, pelvic region and thigh Colon cancer screening Special screening for malignant neoplasms, colon Primary osteoarthritis, unspecified site Prostate cancer screening Special screening for malignant neoplasm of prostate Acute right-sided low back pain without sciatica Class 2 obesity due to excess calories without serious comorbidity with body mass index (BMI) of 36.0 to 36.9 in adult Subacute maxillary sinusitis documented in this encounter [facility]* Diagnosis Lumbosacral ligament sprain, initial encounter- Primary Strain of left knee, initial encounter Right hip pain Pain in joint, pelvic region and thigh Colon cancer screening Special screening for malignant neoplasms, colon Primary osteoarthritis, unspecified site Prostate cancer screening Special screening for malignant neoplasm of prostate Acute right-sided low back pain without sciatica Class 2 obesity due to excess calories without serious comorbidity with body mass index (BMI) of 36.0 to 36.9 in adult Subacute maxillary sinusitis Hyperglycemia- Primary Other abnormal glucose documented in this encounter [facility] HealthcareEvaluation note* Diagnosis Lumbosacral ligament sprain, initial encounter- Primary Strain of left knee, initial encounter Right hip pain Pain in joint, pelvic region and thigh Colon cancer screening Special screening for malignant neoplasms, colon Primary osteoarthritis, unspecified site Prostate cancer screening Special screening for malignant neoplasm of prostate Acute right-sided low back pain without sciatica Class 2 obesity due to excess calories without serious comorbidity with body mass index (BMI) of 36.0 to 36.9 in adult Subacute maxillary sinusitis Type 2 diabetes mellitus without complication, without long-term current use of insulin ([facility])- Primary documented in this encounter [facility] HealthcareEvaluation note* Diagnosis Encounter for screening colonoscopy- Primary Screen for colon cancer Special screening for malignant neoplasms, colon documented in this encounter [facility]* Diagnosis Lumbosacral ligament sprain, initial encounter- Primary Strain of left knee, initial encounter Right hip pain Pain in joint, pelvic region and thigh Colon cancer screening Special screening for malignant neoplasms, colon Primary osteoarthritis, unspecified site Prostate cancer screening Special screening for malignant neoplasm of prostate Acute right-sided low back pain without sciatica Class 2 obesity due to excess calories without serious comorbidity with body mass index (BMI) of 36.0 to 36.9 in adult Subacute maxillary sinusitis Medicare annual wellness visit, initial- Primary Class 2 obesity due to excess calories without serious comorbidity with body mass index (BMI) of 36.0 to 36.9 in adult Type 2 diabetes mellitus without complication, without long-term current use of insulin Type 2 diabetes mellitus without complication, without long-term current use of insulin- Primary Class 2 obesity due to excess calories without serious comorbidity with body mass index (BMI) of 36.0 to 36.9 in adult Elevated blood pressure reading Elevated blood pressure reading without diagnosis of hypertension documented in this encounter [facility] HealthcareEvaluation note* Diagnosis Lumbosacral ligament sprain, initial encounter- Primary Strain of left knee, initial encounter Right hip pain Pain in joint, pelvic region and thigh Colon cancer screening Special screening for malignant neoplasms, colon Primary osteoarthritis, unspecified site Prostate cancer screening Special screening for malignant neoplasm of prostate Acute right-sided low back pain without sciatica Class 2 obesity due to excess calories without serious comorbidity with body mass index (BMI) of 36.0 to 36.9 in adult Subacute maxillary sinusitis Medicare annual wellness visit, initial- Primary Class 2 obesity due to excess calories without serious comorbidity with body mass index (BMI) of 36.0 to 36.9 in adult Type 2 diabetes mellitus without complication, without long-term current use of insulin Type 2 diabetes mellitus without complication, without long-term current use of insulin documented in this encounter [facility]* Diagnosis Onset Date Resolution Status Admit Date Class 2 obesity due to excess calories i n adult acuteSeptember 2024 8:18amElevated alkaline phosphatase levelacute December 22, 2024 8:18amType 2 diabetes mellitus, without long-term current use of insulinacuteSept2024 8:18am [facility] Work Phone: InstructionsNot on filedocumented in this encounter [facility] SystemInstructionsNot on filedocumented in this encounter [facility] SystemInstructionsNot on filedocumented in this encounter [facility] SystemReason for referral (narrative)No reason for referral information availableHol[facility] Work Phone: Summary Purpose Family History Relationship Condition Age at Onset Recorded Date/T isabella father Unknown Malignant neoplasmUnknownmotherDeceasedUnknown Advance Directives Advance Directive Response Recorded Date/ Time Advance Directives No December 02, 2024 4:26pm Chief Complaint and Reason for Visit Chief Complaint Admit Date 3M December 22, 2024 8:18am Reason for Visit Admit Date Class 2 obesity due to excess calories i n adult December 22, 2024 8:18am Elevated alkaline phosphatase level Sept ember 2024 8:18am Type 2 diabetes mellitus, wi thout long-term current use of insulin December 22, 2024 8:18am Additional Source Comments (unrecognized sect ion and content) No Status Records FoundNo Status Records FoundNo Status Records FoundNo Status Records Found INFORMATION SOURCE (unrecogn ized section and content) DATE CREATED AUTHOR 10/16/2017 [facility] DATE CREATED AUTHOR AUTHOR'S ORGANIZ ATION 06/06/2024 [facility] DATE CREATED AUTHOR AUTHOR'S ORGANIZ ATION 06/28/2024 [facility] DATE CREATED AUTHOR AUTHOR'S ORGANIZ ATION 09/19/2024 [facility] EPIC Care Teams (unrecognized sec tion and content) Team MemberRelationshipSpecialtyStart DateEnd Date Brenden Ramirez MD [address] [place] [phone] PCP - Generalmily Medicine05/14/24 Lyssa Kwok NP [address] [place] [address] PCP - [facility]05/16/24 Lyssa Kwok NP [address] [place] [address] Nurse Practitionermi Medicine05/14/24Team MemberRelationshipSpecialtyStart DateEnd Date Brenden Ramirez MD [address] [place] [phone] PCP - GeneralFamily Medicine05/14/24 Lyssa Kwok NP [address] [place] [address] PCP - ACO [facility]05/16/24 Lyssa Kwok NP [address] [place] [address] Nurse PractitionerFamily Medicine05/14/24Team MemberRelationshipSpecialtyStart DateEnd Date Brenden Ramirez MD [address] [place] [address] PCP - GeneralFamily Medicine05/14/24 Lyssa Kwko NP [address] [place] [address] PCP - ACO [facility]05/16/24 Lyssa Kwok, BRENDEN [address] [place] [address] Nurse Pract[facility]er[facility]05/14/24Team MemberRelationshipSpecialtyStart DateEnd Date Brenden Ramirez MD [address] [place] [address] PCP - Generalmily Medicine05/14/24 Lyssa Kwok NP [address] [place] [address] PCP - [facility]CO [facility]05/16/24 Lyssa Kwok NP [address] [place] [address] Nurse Pract[facility]er[facility]05/14/24Team MemberRelationshipSpecialtyStart DateEnd Date Brenden Ramirez MD [address] [place] [address] PCP - GeneralFamily Medicine05/14/24 Lyssa Kwok BRENDEN [address] [place] [address] PCP - ACO [facility]05/16/24 Lyssa Kwko NP [address] [place] [address] Nurse Pract[facility]er[facility]05/14/24Team MemberRelationshipSpecialtyStart DateEnd Date Lyssa Kwok, PROJECT MANAGEMENT MANAGER-AMBULATORY NURSE [address] [place] [address] PCP - GeneralNurse Practitioner05/20/24Team MemberRelationshipSpecialtyStart Date End Date Lyssa Kwok, PROJECT MANAGEMENT MANAGER-[facility] [address] [place] [address] PCP - GeneralNurse Practitioner05/20/24Team MemberRelationshipSpecialtyStart Date End Date Lyssa Kwok, PROJECT MANAGEMENT MANAGER-[facility] [address] [place] [address] PCP - GeneralNurse Practitioner05/20/24Team MemberRelationshipSpecialtyStart Date End Date Brenden Ramirez MD [address] [place] [address] PCP - GeneralSaint [facility]05/14/24 Lyssa Kwok NP [address] [place] [address] PCP - [facility]05/16/24 Lyssa Kwok NP [address] [place] [address] Nurse PractitionerSaint [facility]05/14/24Team MemberRelationshipSpecialtyStart DateEnd Date Brenden Ramirez MD [address] [place] [address] [facility]05/14/24 Lyssa Kwok NP [address] [place] [address] PCP Critical access hospital05/16/24 Lyssa Kwok NP [address] [place] [address] Nurse PractitionerEm[facility]05/14/24Team MemberRelationshipSpecialtyStart DateEnd Date Brenden Ramirez MD [address] [place] [address] PCP - [facility]05/14/24 Lyssa Kwok NP [address] [place] [address] PCP Critical access hospital05/16/24 Lyssa Kwok NP [address] [place] [address] Nurse PractitionerEmory [facility]05/14/24 Team Status: Active Member Role Status Dates ROSA Wesley Primary Care Provider Active Team Status: Inactive Member Role Status Dates ROSA Wesley Primary Care Provider Active Start: December 22, 2024 End: December 22, 2024Lyssa Kwok NP-CAttending ProviderActiveStart: December 22, 2024 End: December 22, 2024 Reason for Visit (unrecogniz ed section and content) ReasonCommentsFallIce & stairsReasonCommentsColon Cancer ScreeningSCREENING COLONOSCOPY, LAST COLON 05/17/2009 DR FLORES, REFERRED BY LYSSA KWOK NP, SpecialtyDiagnoses / ProceduresReferred By ContactReferred To ContactGeneral Surgery Diagnoses Colon cancer screening Procedures IA OFFICE OUTPATIENT VISIT 60-74 MINS HIGH MDM [id number] (SNOMED CT) - AMB REFERRAL TO GENERAL SURGERY Lyssa Kwok, PROJECT MANAGEMENT MANAGER-AMBULATORY NURSE [address] [place] [address] Phone: tel: fax: Vikas Flores, DO [address] [place] [address] Phone: tel: fax: Referral IDStatusReasonStart DateExpiration DateVisits RequestedVisits [id number] Goals (unrecognized section and content) Goals may be documented in a n alternate section FOR RECORDS PERTAINING TO PATIENTS WHO ARE OR HAVE BEEN ENROLLED IN A CHEMICAL DEPENDENCY/SUBSTANCEABUSE PROGRAM, SOME INFORMATION MAY BE OMITTED. This clinical summary was aggregated from multiple sources. Caution should be exercised in using it in the provision of clinical care. This summary normalizes information from multiple sources, and as a consequence, information in this document may materially change the coding, format and clinical context of patient data. In addition, data may be omitted in some cases. CLINICAL DECISIONS SHOULD BE BASED ON THE PRIMARY CLINICAL RECORDS. [facility]. provides no warranty or guarantee of the accuracy or completeness of information in this document.
[2025-03-16 09:40] LABS: Alanine Aminotransferase 55 U/L (16-63); Albumin Globulin Ratio 0.7; Albumin Level 3.6 g/dL (3.4-5.0); Alkaline Phosphatase 93 U/L (46-116); Anion Gap 11.2; Aspartate Amino Transferase 42 U/L (15-37); Blood Urea Nitrogen 16.0 mg/dL (7.0-18.0); Calcium 9.0 mg/dL (8.5-10.1); Carbon Dioxide 28.3 mmol/L (21.0-32.0); Chloride 101 mmol/L (98-107); Cholesterol 260 mg/dL (<=200); Estimated GFR (African America >60 (>=60 mL/min/1.73m^2); Estimated GFR (Non-African Ame >60 (>=60 mL/min/1.73m^2); Globulin 4.9 g/dL; Glucose 137 mg/dL (74-106); HDL Cholesterol 49 mg/dL (40-60); Potassium 4.5 mmol/L (3.5-5.1); Sodium 136 mmol/L (136-145); Total Protein 8.5 g/dL (6.4-8.2); Triglycerides 160 mg/dL (<=150); VLDL CHOLESTEROL 32.0 mg/dL
== END 2025-03-16 08:42 | disposition home or self-care (01) ==
LOC: LAB 08:43
PROVIDERS: PCP Nurse Practitioner; Visit Provider Nurse Practitioner
DX: E11.9 Type 2 diabetes mellitus without complications (principal); E66.812 Obesity, class 2; E66.09 Other obesity due to excess calories; R74.8 Abnormal levels of other serum enzymes
CPT/HCPCS: 36415; 80053; 80061; 82043; 82570

== ENCOUNTER 2025-03-30 10:11 | Outpatient (OUT) | payer MEDICARE, OTHER, SELFPAY ==
--- OUTSIDE RECORDS SUMMARY | 2025-03-30 10:15 | XMS_ITS | Clinical Summary ---
Author Organization [facility] Address [address] [place] [address] Care Team Providers Care Shine Worker Name Role Phone Brenden Ramirez MD Primary Care Provider [phone] Lyssa Kwok SUPERVISOR SAWMILL Unavailable [phone] AichholLyssa werner SUPERVISOR SAWMILL Unavailable [phone] Allergies Active AllergyReactionsCriticalityNoted FwbsPxqxbqfzSzovrvbadnqUonpwuu37/13/2018 ALLERGY A CHILD Medications MedicationSigDispense QuantityRefillsLast FilledStart DateEnd DateStatus aspirin 81 MG EC tablet Take 81 mg by mouth DailyActive metFORMIN (Glucophage) 500 MG tablet Indications:Type 2 diabetes mellitus without complication, without long-term current use of insulin (HCC)Take 1 tablet (500 mg) by mouth in the morning. Take with meals. 90 tablet 5Active Active Problems ProblemNoted DateDiagnosed DateElevated blood pressure lediwyz4309/17/2024 Assessment & Plan (09/17/2024 9:35 AM EDT): Recommend starting therapy Pt refuses, does not like taking meds We have talked about guideline recommendations as well as renal protection, continues to decline Sessile colonic polyp06/19/2024 Assessment & Plan (06/19/2024 10:36 AM EDT): Colonoscopy 06/19/24, repeat in 5 years Medicare annual wellness visit, gjeedgs5006/17/2024 Assessment & Plan (06/17/2024 6:24 AM EDT): Reviewed Ht/Wt/BMI Recommend eye exam yearly Recommend dental exams twice a year Balance work/leisure activities Exercises is recommended most days of the week (appropriate as chronic conditions allow) Follow up yearly and prn Type 2 diabetes mellitus without complication, without long-term current use of voinalm9405/22/2024 Assessment & Plan (09/17/2024 9:25 AM EDT): Check blood sugars daily, notify if <70 [...] A1c : 6.5% 09/17/24 (9.1% on 05/20/24) Assessment & Plan (06/17/2024 10:52 AM EDT): Check blood sugars daily, notify if <70 or >200. Take medications (pills or insulin) as directed. Monitor for s/s of hypoglycemia (sweaty, dizziness, nausea, vomiting, or shakiness). Watch for increase in thirst, urination, or appetite. Inspect feet frequently monitoring for open wounds , andalso recommend yearly eye exam. Pt should attempt to remain as physically active as chronic conditions allow, as well as trying to follow a diet low in carbohydrates, and simple sugars. Current meds: metformin A1c : 9.1% on 05/20/24 Will add asa At this point he does not like taking meds, we will take small steps of change here. Talked about goals for blood pressure, A1c and lowering cholesterol as well Phase this over time Primary tahetves95/10/2025Strain of left knee05/19/2024 Assessment & Plan (05/19/2024 10:52 AM EST): No laxity noted, no xray needed at this time Lumbosacral ligament sprain, initial /10/2025 Assessment & Plan (05/19/2024 10:51 AM EST): Sxs seem to be getting better just with OTC NSAID and tyleonol arthritis Would recommend ice to affected area No red flags Fu in 4 weeks, sooner if needed Colon cancer gaiwnqtkc02/10/2025 Assessment & Plan (05/19/2024 10:53 AM EST): Colon cancer screening options were discussed with [...] who did his last one as well Right hip pain05/19/2024 Assessment & Plan (05/19/2024 10:51 AM EST): Possible radicular from LS sprain Will give order for XR hip at this time Fu in 4 weeks Primary uolyqxqnparsvi58/10/2025Prostate cancer /10/2025 Overview (05/21/2024): 05/21/24: 0.37 Low back pain05/19/2024 Assessment & Plan (05/19/2024 10:53 AM EST): Ice, NSAID/tylenol Seems to be getting better Unsure if hip is true hip pain, vs radicular Fu in 4 weeks Class 2 obesity due to excess calories without serious comorbidity with body mass index (BMI) of 36.0 to 36.9 in adult05/19/2024 Assessment & Plan (09/17/2024 9:13 AM EDT): Discussed with patient their BMI (actual, verses recommended). We have also discussed lifestyle modifications: attempts to perform physical activity as chronic conditions allow, also to monitor dietary intake: increasing protein/fruits/veggies and lowering carb intake (unless contraindicated). Limit sodas, juices, and sugary drinks. He has been making changes Has lost 12 pounds since 06/03 Assessment & Plan (06/17/2024 10:53 AM EDT): Discussed with patient their BMI (actual, verses recommended). We have also discussed lifestyle modifications: attempts to perform physical activity as chronic conditions allow, also to monitor dietary intake: increasing protein/fruits/veggies and lowering carb intake (unless contraindicated). Limit sodas, juices, and sugary drinks. He has been making changes We will set goal of 15-20 pound weight loss over the next 12 months Assessment & Plan (05/19/2024 10:52 AM EST): Discussed with patient their BMI (actual, verses recommended). We have also discussed lifestyle modifications: attempts to perform physical activity as chronic conditions allow, also to monitor dietary intake: increasing protein/fruits/veggies and lowering carb intake (unless contraindicated). Limit sodas, juices, and sugary drinks. Primary osteoarthritis of right knee10/15/2017 Resolved Problems ProblemNoted DateDiagnosed DateResolved EtbdKmefozqznjshy45/12/202503/02/2025 Subacute maxillary sxlxksoug31/02/2025 Assessment & Plan (05/19/2024 10:52 AM EST): Feels he is in need for atb Also takes flonase, add allergy pill as well Fu if not better COVID04/24//01/2025 Immunizations ImmunizationAdministration DatesNext DueInfluenza, High Dose Seasonal, Preservative Free02/07/2024Influenza, Seasonal, Quadrivalent, Adjuvanted 02/09/2023,01/25/2022Influenza, injectable, quadrivalent, preservative free 02/12/2021,02/10/2020Influenza, seasonal, intradermal, preservative free 04/03/2019Pneumococcal Conjugate PCV Zoster, Osnlcwjpocb62/06/2023, 06/19/2022 Social History Tobacco UseTypesPacks/DayYears UsedDateSmoking Tobacco: NeverSmokeless Tobacco: NeverAlcohol UseStandard Drinks/WeekCommentsYes0 (1 standard drink = 0.6 oz pure alcohol)very infreqPHQ-2AnswerDate RecordedPatient Health Questionnaire-2 Score0 06/17/2024Sex and Gender InformationValueDate RecordedSex Assigned at BirthNot on fileLegal OkvWjur9906/21/2022 8:24 PM EDTGender IdentityNot on fileSexual OrientationNot on file Last Filed Vital Signs Vital SignReadingTime TakenCommentsBlood Hwewuelv954/76009/17/2024 9:35 AM EDT Jlysg279209/17/2024 9:02 AM GTYJlfdobpqyht24.7 ??C (98.1 ??F)09/17/2024 9:02 AM EDTRespiratory Tdrc733709/17/2024 9:02 AM EDTOxygen Pipuhdxmjn20%09/17/2024 9:02 AM EDTInhaled Oxygen Concentration--Kyudiv820 kg (252 lb)09/17/2024 9:02 AM EDT Jozvbg716.3 cm (5' 11 )05/19/2024 9:52 AM ESTBody Mass Index35.15005/19/2024 9:52 AM EST Plan of Treatment Health MaintenanceDue DateLast DoneCommentsCT Zinwalinupvd1956FIT-DNA 1956FIT1956FOBT1956 3960Kikphkdfdipcs1956Diabetes: Retinopathy Nzkxcquck57/15/1966Diabetes: Urine Protein Wdndwcphn39/15/1975COVID- 19 Vaccine ( season), 01/25/2022, 02/12/2021, Additional history existsInfluenza Vaccine (#1)/, 02/09/2023, 01/25/2022, Additional history existsDiabetes: Hemoglobin A1C12/18/2024 09/17/2024Medicare Annual Wellness (AWV)603, 06/17/2024 Fsyeplpenfk87, 06/19/2024, 06/19/2024, Additional history existsColorectal Cancer Yiiacpyvz36/13/2030Pneumococcal Vaccine: 65+ Years Cisydpnkr59/11/2022 Procedures Procedure NamePriorityDate/TimeAssociated DiagnosisCommentsPOCT GLYCOSYLATED HEMOGLOBIN (HGB A1C)Jlckhyo1009/17/2024 9:12 AM EDT Type 2 diabetes mellitus without complication, without long-term current use of insulin (HCC) JTIAYGPKGBWXebuumf40/13/2025 9:58 AM EDTfrom Last 3 Months or Most Recently Relevant to Health Maintenance Results * (ABNORMAL) POCT glycosylated hemoglobin (Hb A1C) docked device (09/17/2024 9:12 AM EDT)ComponentValueRef RangeTest MethodAnalysis TimePerformed At Pathologist SignatureHemoglobin A1C6.5Specimen (Source)Anatomical Location / LateralityCollection Method / VolumeCollection TimeReceived TimeBloodVenous blood specimen / Zwytwkp8409/17/2024 9:12 AM EDT Narrative Authorizing ProviderResult TypeResult StatusLisa Kwok POINT OF CARE TEST ENTER/EDIT ORDERABLESFinal Result * Colonoscopy (06/19/2024 9:58 AM EDT)Anatomical RegionLateralityModality Endoscopy Narrative Authorizing ProviderResult TypeResult StatusMichaemarkie Dior DOENDOSCOPY PROCEDURE ORDERABLESFinal Result from Last 3 Months or Most Recently Relevant to Health Maintenance [place] [address] [place] [address] Care Teams Team MemberRelationshipSpecialtyStart DateEnd Date Brenden Ramirez MD PCP - GeneralFamily Medicine05/14/24 Lyssa Kwok NP [address] [place] [address] PCP - ACO Reach05/16/24 Lyssa Kwok NP Nurse PractitionerFamily Medicine05/14/24
--- OUTSIDE RECORDS SUMMARY | 2025-03-30 10:15 | XMS_ITS | Clinical Summary ---
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 Name Role Phone Brian Beckman MD Primary Care Provider [phone] Allergies Active AllergyReactionsCriticalityNoted InrqIcwewaveBagaausosrl25/13/2018 ALLERGY A CHILD Medications MedicationSigDispense QuantityRefillsLast FilledStart DateEnd DateStatus meloxicam (MOBIC) 15 MG tablet Take 15 mg by mouth dailyActive acetaminophen (TYLENOL) 500 MG tablet Take 500 mg by mouth every 6 hours as needed for PainActive rivaroxaban (XARELTO) 10 MG TABS tablet Take 1 tablet by mouth daily 12 tablet 10/16/2017Active Active Problems ProblemNoted DateDiagnosed DatePrimary osteoarthritis of right knee10/15/2017 Social History Tobacco UseTypesPacks/DayYears UsedDateSmoking Tobacco: NeverSmokeless Tobacco: NeverAlcohol UseStandard Drinks/WeekCommentsYes0 (1 standard drink = 0.6 oz pure alcohol)SOCIALSex and Gender InformationValueDate RecordedSex Assigned at Not on fileLegal DxmJfqu8009/18/2017 9:29 AM EDTGender IdentityNot on fileSexual OrientationNot on file Last Filed Vital Signs Vital SignReadingTime TakenCommentsBlood Fthkgpqv011/8007 6:33 AM EDT Apmfm568410/16/2017 6:33 AM NQBPoitbqbwjsh67.2 ??C (98.9 ??F)10/16/2017 8:35 AM EDTRespiratory Slkp8174 6:33 AM EDTOxygen Cbupujdjdg93%10/16/2017 6:33 AM EDTInhaled Oxygen Concentration--Uwqjsy617.9 kg (271 lb)10/16/2017 12:00 AM VXKFogwri460.8 cm (5' 10 )10/15/2017 11:45 AM EDTBody Mass Index38.8810/15/2017 11:45 AM EDT Plan of Treatment Not on file Medical Devices ImplantedTypeAreaManufacturerDevice IdentifierShelf Expiration DateModel / Serial / LotCement Palacos R Sing Dose 40gr Implanted:Qty: 2 on 10/15/2017 [facility]: [employer]nee[employer]-[id number] / / [id number] Persona Sz 10 Rt Implanted:Qty: 1 on 10/15/2017 [facility]: [employer]-[id number] / / [id number] Knee Patella All Poly Persona Implanted:Qty: 1 on 10/15/2017 [facility]: [employer]-[id number] / / [id number] Knee Psn Tib Stm 5 Deg Sz G R Implanted:Qty: 1 on 10/15/2017 [facility]: [employer]-[id number] / / [id number] Hip Psn Asf Cr 10mm Ve R 7-12gh Implanted:Qty: 1 on 10/15/[facility] [employer]-[id number] / / [id number] Insurance Advance Directives * Full Code (Latest Code Status on File) Date ActivatedDate InactivatedComments10/15/2017 6:03 PM10/16/2017 3:18 PM Care Teams Team MemberRelationshipSpecialtyStart DateEnd Date Brian Beckman MD [address] [address] [place] [address] PCP - GeneralInternal Medicine09/19/17
[2025-03-30 10:57] LABS: Hematocrit 45.3 % (42.0-54.0); Hemoglobin 15.1 g/dL (14.0-18.0); Immature Granulocytes Abs Auto 0.02 10^3/uL (0.00-0.03); Immature Granulocytes Pct Auto 0.3 % (0.0-0.5); Lymphocytes Absolute Auto 2.0 10^3/uL (1.2-3.8); Mean Corpuscular HGB Conc 33.3 g/dL (29.9-35.2); Mean Corpuscular Hemoglobin 29.8 pg (25.9-34.0); Mean Corpuscular Volume 89.5 fL (80.0-94.0); Platelet Count 246 10^3/uL (150-450); Red Blood Count 5.06 10^6/uL (4.70-6.10); White Blood Count 7.0 10^3/uL (4.0-11.0)
[2025-04-01 14:08] LABS: Albumin, U 30.1 % (.); Alpha-1-Globulin, U 1.3 % (.); Alpha-2-Globulin, U 15.4 % (.); Beta Globulin, U 28.9 % (.); Gamma Globulin, U 24.4 % (.)
[2025-04-01 15:08] LABS: Albumin 3.6 g/dL (2.9-4.4); Alpha-1-Globulin 0.2 g/dL (0.0-0.4); Alpha-2-Globulin 0.9 g/dL (0.4-1.0); Free Kappa Lt Chains,S 34.5 mg/L (3.3-19.4); Free Lambda Lt Chains,S 20.5 mg/L (5.7-26.3); Gamma Globulin 1.8 g/dL (0.4-1.8); Immunoglobulin A, Qn, Serum 474 mg/dL (61-437); Kappa/Lambda Ratio,S 1.68 (0.26-1.65)
== END 2025-03-30 10:12 | disposition home or self-care (01) ==
LOC: LAB 10:13
PROVIDERS: PCP Nurse Practitioner; Visit Provider Nurse Practitioner
DX: R77.8 Other specified abnormalities of plasma proteins (principal)
CPT/HCPCS: 36415; 82784; 83521; 84155; 84156; 84165; 84166; 85025; 86334; 86335